=== PATIENT | male | born 1950 | race African-American/Black ===

== ENCOUNTER 2020-07-21 12:42 | Inpatient (IN) | payer MEDICARE, MEDICAID ==
[~2020-07-21 12:42] MED LIST: PROPOFOL 200 MG/20 ML VIAL ONE
[2020-07-21] MEDS ORDERED: Ondansetron PF 4 MG/2 ML Vial IVP PRN (15:33)
[2020-07-21 16:36] LABS: INR-International Normal Ratio 1.5; PTT 27.4 sec (22.9-36.1); Prothrombin Time 18.5 sec (12.0-14.7)
[2020-07-21 17:03] LABS: Hemoglobin 7.6 g/dL (14.0-18.0); Mean Corpuscular HGB CONC 31.4 g/dL (32.0-36.0); Mean Corpuscular Hemoglobin 28.7 pg (27.0-31.0); Mean Corpuscular Volume 91.4 fL (78.0-98.0); RBC Distribution Width 17.4 % (11.5-14.5); Red Blood Cell (RBC) Count 2.65 mill/uL (4.70-6.10); White Blood Cell (WBC) Count 12.9 thou/uL (4.8-10.8)
[2020-07-21 17:07] LABS: Anion Gap 13 mmol/L (10-20); BUN (Urea Nitrogen) 19 mg/dL (8.4-25.7); Calc. Creatinine Clearance 66 mL/min (70-130); Calcium 8.2 mg/dL (7.8-10.44); Carbon Dioxide 14 mmol/L (23-31); Chloride 111 mmol/L (98-107); Glucose 122 mg/dL (83-110); Sodium 134 mmol/L (136-145)
[2020-07-21 17:24] LABS: #Basophils 0.1 thou/uL (0.0-0.2); #Eosinphils 0.2 thou/uL (0.0-0.7); #Lymphocytes 3.2 thou/uL (1.20-3.40); #Monocytes 1.5 thou/uL (0.11-0.59); #Neutrophils 7.6 thou/uL (1.40-6.50); %Basophils 0.6 % (0.0-1.0); %Eosinophils 2.1 % (0.0-10.0); %Lymphocytes 26.6 % (21.0-51.0); %Neutrophils 59.7 % (42.0-75.0); MDiff Complete? YES; Mean Platelet Volume 10.6 fL (7.4-10.4); Platelet Count 90 thou/uL (130-400); Platelet Morphology Comment Appears Decreased; Polychromasia SLIGHT = 2-3 cells (100X) (0-2/hpf); Target Cells SLIGHT = 2-5 cells (100X) (0-1/hpf)
[2020-07-21] MEDS ORDERED: Albumin 25% 25 GM/100 ML BOT IVPB SCH (18:11)
[2020-07-21 18:49] LABS: ALT (SGPT) 23 U/L (8-55); AST (SGOT) 54 U/L (5-34); Albumin 2.1 g/dL (3.4-4.8); Alkaline Phosphatase 75 U/L (40-110); Bilirubin, Direct 1.4 mg/dL (0.1-0.3); Protein, Total 7.6 g/dL (5.8-8.1)
[2020-07-21] MEDS: Sodium Bicarbonate 75 MEQ in Sodium Chloride 0.45% 1,000 ML IV SCH (18:52)
--- NOTE | 2020-07-21 20:17 | CON ---
DATE OF CONSULTATION: HISTORY OF PRESENT ILLNESS: The patient is a 70-year-old gentleman who was seen and admitted to [facility] in [place] for a GI bleed. He is awaiting transfer to [facility]; however, they would not accept him because of capacity and he was transferred here. He is confused and unable to add to History of Present Illness. He denies any nausea or vomiting, abdominal pain, or weight loss, but he also denies any bleeding. He underwent an upper endoscopy at [facility] in [place]. It reportedly showed an antral nodule that was biopsied and cauterized. It was unclear whether that was a source of the bleeding. Today's labs from [facility] showed a glucose of 106, chloride 113, CO2 of 13, calcium 8.2, total bilirubin 1.9, SGOT is 69, albumin of 2.0. CBC showed a white blood cell count of 13.6, hemoglobin 7.0, hematocrit of 20.5, platelet count of 83. During the hospital course summary, the patient presented to the emergency department with presyncopal event at a local detention facility, found to have hypotension. He was given IV fluid replacement with improvement in his renal function. He began to have rectal balloon bleeding with two bloody bowel movements and drop in his hematocrit to 20. His reported stay in [place] required 4 units packed RBCs. Endoscopy was 07/02/2020. PAST MEDICAL HISTORY: According to the medical records sent with him shows congestive heart failure, CHF, hepatitis C, and hypertension. PAST SURGICAL HISTORY: Includes cardiac valve replacement, coronary angioplasty with stent placement. MEDICATIONS: Include; 1. Atorvastatin 40 mg p.o. daily. 2. Folic acid 1 mg p.o. daily. 3. Lasix 40 mg p.o. daily. 4. Hydrocodone/acetaminophen 1 q.6 hours p.r.n. 5. DuoNeb nebulizer q.6 hours p.r.n. 6. Lactulose 30 mL 3 times daily. 7. Losartan 50 mg p.o. daily. 8. Protonix 1 p.o. b.i.d. 9. Prazosin 1 tablet by mouth q.p.m. 10. Lyrica 1 p.o. b.i.d. 11. Propranolol 20 mg 1 p.o. b.i.d. 12. Seroquel 150 mg 1 p.o. daily. 13. Spironolactone 25 mg 1 p.o. daily. 14. Thiamine 1 tablet p.o. daily. SOCIAL HISTORY: He is single, smoker. Alcohol, 3 drinks per week. PHYSICAL EXAMINATION: VITAL SIGNS: Temperature 98.3, pulse 103, respiratory rate 16, blood pressure 114/72. HEENT: Unremarkable. NECK: Supple. CHEST: Clear. CARDIOVASCULAR: Regular rate and rhythm. ABDOMEN: Soft, nontender without organomegaly or masses. No appreciable fluid wave is present. RECTAL: Deferred. EXTREMITIES: Normal. NEUROLOGIC: Nonfocal. LABORATORY DATA: Shows white blood cell count is 12.9, hemoglobin 7.6, platelet count of 90,000. PT is 18.5 with an INR of 1.5. Chemistry shows sodium 134, chloride 111, CO2 of 14, creatinine 1.51, glucose 122. ASSESSMENT: 1. Gastrointestinal bleed-concern for cirrhotic to have an upper GI source of his bleeding. He had a GI bleed with 4 units of transfusion in [facility] approximately 2 weeks ago. There was an antral nodule that was treated with cautery. 2. Confusion-probably hepatic encephalopathy. 3. Anemia. 4. Cirrhosis by history-etiology is alcohol by medical record. 5. History of hepatitis C. 6. Renal insufficiency. RECOMMENDATIONS: 1. EGD urgently. 2. PPI. 3. Serial H and H. 4. Transfusion support if needed. 5. Lactulose once EGD is completed. 6. Serum ammonia. 7. IV fluids. 8. Midodrine, Sandostatin, and albumin until patient's renal function stabilizes. Job ID: [id number]
--- NOTE | 2020-07-21 20:31 | HP ---
CHIEF COMPLAINT: Hematochezia. HISTORY OF PRESENT ILLNESS: The patient is a 70-year-old male, who actually was transferred from a hospital in [place] for further evaluation for his hematochezia. It seems that the patient initially presented to the ED from the prison facility for a presyncopal event. He was found to be hypotensive and there was some evidence of acute kidney injury. There was reported to have some diarrhea; however, it appeared to be nonbloody at that time. The patient at this time was given some IV fluids and his creatinine improved; however, he was noted to have 2 bloody bowel movements and a drop in his hemoglobin and his hematocrit. At this time, since there was no GI specialist that was noted at the facility, the patient was transferred here for further evaluation. The patient initially recently was at [facility] in [facility] and had an EGD done, which indicated a small ulcerated nodular area in the antrum, which was treated with bipolar cautery. It was unclear if this was the site for bleeding. The patient also is a known cirrhotic. PAST MEDICAL HISTORY: Per the record includes heart failure, unclear if it is systolic and diastolic; hepatitis C; hypertension. PAST SURGICAL HISTORY: He has had coronary angioplasty with stent placement. He also has had a cardiac valve replacement. Again, I do not have very limited information since he normally follows up at [facility]. ALLERGIES: HE HAS ALLERGIES TO HYDROCHLOROTHIAZIDE. MEDICATIONS: He is on, 1. Tylenol as needed. 2. Atorvastatin 40 mg daily. 3. Folic acid 1 mg daily. 4. Lasix 40 mg daily. 5. Cozaar 50 mg daily. 6. Protonix 40 mg daily. 7. Prazosin 2 mg daily. 8. Pregabalin 75 mg daily. 9. Propranolol 20 mg daily. 10. Quetiapine 50 mg daily. 11. Spironolactone 25 mg daily. 12. Thiamine 100 mg daily. SOCIAL HISTORY: The patient currently smokes every day, one pack a day. Alcohol; from the notes, it looks like he is a current drinker, 4 shots of liquor per week, probably 3 drinks a day. No recreational drug use. FAMILY HISTORY: No history of heart disease or stroke. REVIEW OF SYSTEMS: All negative except the ones mentioned above in the HPI. PHYSICAL EXAMINATION: VITAL SIGNS: As of the following; temperature of 98.3, pulse 103, respirations 16, oxygen saturation 97% on room air, blood pressure 114/72. GENERAL: He is awake and oriented x1. CARDIOVASCULAR: S1 and S2 present. No murmurs, rubs, or gallops. LUNGS: Clear to auscultation. No rhonchi or wheezes noted. ABDOMEN: Mildly obese. Bowel sounds are present x2. Nontender upon palpation. EXTREMITIES: No edema. Pedal pulses are present x2. NEUROVASCULAR: No significant deficits noted. SKIN: No cuts, lesions, or bruises noted. LABORATORY DATA: Sodium of 134, potassium 4.0, BUN of 19, creatinine of 1.51. Coagulation, his INR is 1.5. WBCs of 12.9, hemoglobin of 7.6, hematocrit of 24.2, and his platelets are 90. ASSESSMENT AND PLAN: The patient is a very pleasant 70-year-old male who presents to the hospital with complaints of presyncope. He was found to have 2 bloody movements. 1. Acute gastrointestinal bleed. The patient had a bowel movement here, which was nonbloody in nature; however, he had 2 bloody bowel movements and dropped his H and H. He recently had an esophagogastroduodenoscopy, which indicated a small ulcerated nodule and underwent a bipolar cautery. This was done on July 02. We will start the patient on Protonix. We will consult Gastroenterology. 2. Acute blood loss anemia. We will continue to monitor H and H, and we will continue to see for any signs of bleeding. 3. Acute kidney injury. We will continue some mild hydration. We will add some bicarb. 4. Non-anion gap metabolic acidosis, most likely secondary to underlying elevated creatinine possibly versus starvation, unclear. We will start the patient on some bicarb. The patient's bicarb was 17. It has gotten a little worse. 5. Mild leukocytosis. It could be possibly reactive. We will continue to monitor. 6. Mild tachycardia. Again, we will start hydration and we will continue to monitor. 7. Deep venous thrombosis prophylaxis. We will put the patient on sequential compression devices. Job ID: [id number]
[2020-07-21] MEDS ORDERED: Ketamine 50 MG/ML (10ML VIAL) ONE (21:13)
[2020-07-21] MEDS: Pantoprazole 40 MG VIAL IVP SCH (22:07)
--- NOTE | 2020-07-21 22:18 | OP ---
DATE OF PROCEDURE: 07/21/2020 DESCRIPTION OF PROCEDURE: After informed consent was obtained, the patient was placed in the left lateral decubitus position, anesthesia administered per the Anesthesia Department. Forward-viewing endoscope was inserted into the esophagus under direct visualization with ease and passed to the second portion of the duodenum with ease. Second portion of duodenum and duodenal bulb were normal. The pylorus, antrum, body, fundus, and cardia were normal. No blood was seen in the upper GI tract. There was a large amount of retained gastric contents, so full visualization of the stomach and antrum could not be seen. No varices were noted. There was portal hypertensive gastropathy. ASSESSMENT: 1. Portal hypertensive gastropathy. 2. Large amount of retained gastric contents. 3. Otherwise normal partially visualized EGD. RECOMMENDATIONS: 1. Begin full liquids. 2. Lactulose. 3. Repeat EGD if re-bleeds. Job ID: [id number]
[2020-07-22] MEDS: Acetaminophen 325 MG TAB PO PRN ×2 (04:03→19:50)
[2020-07-22 07:46] LABS: Hemoglobin 7.4 g/dL (14.0-18.0); Mean Corpuscular HGB CONC 32.1 g/dL (32.0-36.0); Mean Corpuscular Hemoglobin 29.2 pg (27.0-31.0); Mean Corpuscular Volume 90.9 fL (78.0-98.0); Mean Platelet Volume 10.3 fL (7.4-10.4); Platelet Count 74 thou/uL (130-400); RBC Distribution Width 17.5 % (11.5-14.5); Red Blood Cell (RBC) Count 2.54 mill/uL (4.70-6.10)
[2020-07-22 07:51] LABS: Anion Gap 12 mmol/L (10-20); BUN (Urea Nitrogen) 15 mg/dL (8.4-25.7); Calc. Creatinine Clearance 72 mL/min (70-130); Calcium 8.1 mg/dL (7.8-10.44); Carbon Dioxide 16 mmol/L (23-31); Chloride 110 mmol/L (98-107); Glucose 89 mg/dL (83-110); Potassium 3.9 mmol/L (3.5-5.1); Sodium 134 mmol/L (136-145)
[2020-07-22] MEDS ORDERED: FLU VACC QS2020-21(65YR UP)/PF 240 MCG/0.7 ML SYRINGE IM ONE (09:00)
[2020-07-22] MEDS ORDERED: Folic Acid 1 MG TAB PO SCH (09:00)
--- NOTE | 2020-07-22 09:01 | PRG ---
DATE OF SERVICE: 07/22/2020 SUBJECTIVE: Mr. Tello is feeling pretty awake and mentally clear this morning. He is not having any abdominal pain or nausea. He has tolerated a liquid diet. There has been no report of overt bleeding overnight. He has remained hemodynamically stable. He is feeling hungry. OBJECTIVE: VITAL SIGNS: Temperature 98.1, pulse 78, blood pressure 116/68, and 96% oxygen saturation on room air. GENERAL: In no acute distress. HEART: Regular rate and rhythm. LUNGS: Clear to auscultation bilaterally. ABDOMEN: Mild distention. Not tense. Bowel sounds present. Nontender to palpation. EXTREMITIES: No peripheral edema. LABORATORY STUDIES: Hemoglobin low but stable at 7.4, platelets 74. INR 1.5. Sodium 134, potassium 3.9, BUN only 15, creatinine 1.37, total bilirubin 2.0, alkaline phosphatase 75, AST 54, and ALT 23. Ammonia was 74. Albumin 2.1. ASSESSMENT AND PLAN: 1. Anemia. 2. Suspected gastrointestinal bleed, with EGD showing no active bleeding in the stomach, though retained food on examination yesterday. The patient is clinically stable. I am seeing no evidence of overt bleeding since his essentially negative procedure yesterday. Note, the patient had an antral nodule that was biopsied recently at [facility], with pathology pending, but there was no blood seen in the examined portions of the stomach yesterday. No plan for repeat endoscopy. I think the patient's diet can be advanced to a low-sodium diet. Continue other outpatient medications. GI will sign off, but please call back anytime with questions or concerns. Job ID: [id number]
[2020-07-22 09:26] LABS: Band 3 % (5-11); Eosinophils 1 % (0-10); Hypochromia SLIGHT = 6-15 cells (100X) (0-5/hpf); Lymphocytes 37 % (21-51); MDiff Complete? YES; Monocytes 5 % (0-10); Neutrophil 52 % (42-75); Platelet Morphology Comment Appears Decreased; Polychromasia MODERATE = 3-4 cells (100X) (0-2/hpf); Reactive Lymphocytes 1 % (0-10); Target Cells SLIGHT = 2-5 cells (100X) (0-1/hpf); White Blood Cell (WBC) Count 11.2 thou/uL (4.8-10.8)
[2020-07-22] MEDS: Sodium Bicarbonate 75 MEQ in Sodium Chloride 0.45% 1,000 ML IV SCH ×2 (09:51→17:31)
[2020-07-22] MEDS: Pantoprazole 40 MG VIAL IVP SCH ×2 (09:52→19:49)
--- NOTE | 2020-07-22 14:00 | PDOC.HOSPP ---
- Subjective Encounter Date: 07/22/20 Encounter Time: 13:57 Subjective: confused, oriented to person only - Objective Vital Signs & Weight: Vital Signs (12 hours) Temp Pulse Resp BP Pulse Ox 07/22/20 12:05 98.3 F 85 14 117/71 96 07/22/20 08:00 98.1 F 78 20 116/68 96 07/22/20 04:34 98.7 F 91 16 100/58 L 100 Weight Weight 227 lb 11.8 oz I&O: 07/21/20 07/22/20 07/23/20 06:59 06:59 06:59 Intake Total 1240 Output Total 500 Balance 740 Result Diagrams: 07/22/20 07:19 07/22/20 07:19 Hospitalist ROS - Medication Medications: Active Medications Generic Name Dose Route Start Last Admin Trade Name Freq PRN Reason Stop Dose Admin Acetaminophen 650 mg 07/22/20 03:39 07/22/20 04:03 Acetaminophen 325 Mg Tab PO 650 mg Q6H PRN Administration Mild Pain (1-3) Folic Acid 1 mg 07/22/20 09:00 07/22/20 09:52 Folic Acid 1 Mg Tab PO 1 mg DAILY PALAK Administration Sodium Bicarbonate 75 meq/ 1,075 mls @ 100 mls/hr 07/21/20 18:15 07/22/20 09:51 Sodium Chloride IV 1,075 mls .[id number] PALAK Administration Thiamine HCl 100 mg/ Sodium 51 mls @ 100 mls/hr 07/21/20 18:15 07/21/20 18:53 Chloride IVPB 51 mls Q24HR PALAK Administration Pantoprazole Sodium 40 mg 07/21/20 21:00 07/22/20 09:52 Pantoprazole 40 Mg Vial IVP 40 mg BID PALAK Administration Quetiapine Fumarate 50 mg 07/21/20 21:00 07/21/20 22:07 Quetiapine Fumarate 25 Mg Tab PO 50 mg HS PALAK Administration Hospitalist Exam Vitals: Vital Signs (12 hours) Temp Pulse Resp BP Pulse Ox 07/22/20 12:05 98.3 F 85 14 117/71 96 07/22/20 08:00 98.1 F 78 20 116/68 96 07/22/20 04:34 98.7 F 91 16 100/58 L 100 Weight Weight 227 lb 11.8 oz Neck: no JVD Heart: no murmur, irregular Respiratory: CTAB Gastrointestinal: soft, non-tender, normal bowel sounds Extremities: 1+ LE edema Hosp A/P (1) GI bleeding Code(s): K92.2 - GASTROINTESTINAL HEMORRHAGE, UNSPECIFIED Status: Acute Qualifiers: GI bleed type/associated pathology: unspecified gastrointestinal hemorrhage type Qualified Code(s): K92.2 - Gastrointestinal hemorrhage, unspecified (2) Anemia due to blood loss Code(s): D50.0 - IRON DEFICIENCY ANEMIA SECONDARY TO BLOOD LOSS (CHRONIC) Status: Acute (3) Encephalopathy acute Code(s): G93.40 - ENCEPHALOPATHY, UNSPECIFIED Status: Acute (4) Cirrhosis of liver Code(s): K74.60 - UNSPECIFIED CIRRHOSIS OF LIVER Status: Acute Qualifiers: Hepatic cirrhosis type: alcoholic cirrhosis (5) HTN (hypertension) Code(s): I10 - ESSENTIAL (PRIMARY) HYPERTENSION Status: Chronic Qualifiers: Hypertension type: essential hypertension Qualified Code(s): I10 - Essential (primary) hypertension (6) CAD (coronary artery disease) Code(s): I25.10 - ATHSCL HEART DISEASE OF [place] CORONARY ARTERY W/O ANG PCTRS Status: Chronic Qualifiers: Coronary Disease-Associated Artery/Lesion type: [place] artery [place] vs. transplanted heart: [place] heart Associated angina: without angina Qualified Code(s): I25.10 - Atherosclerotic heart disease of [place] coronary artery without angina pectoris - Plan reinstitute lactulose, propanolol, vitamins etc rpt cbc, bmp, ammonia level in am
--- NOTE | 2020-07-22 17:15 | OP ---
DATE OF PROCEDURE: 07/22/2020 PREOPERATIVE DIAGNOSES: 1. Acute GI bleed. 2. History of liver cirrhosis. POSTOPERATIVE DIAGNOSES: 1. Acute GI bleed. 2. History of liver cirrhosis. PROCEDURE PERFORMED: Placement of triple-lumen left subclavian central venous catheter. INDICATIONS FOR PROCEDURE: This is a 70-year-old man, who was admitted with acute GI bleed. Multiple attempts to secure peripheral IV access has been unsuccessful. I was asked to place a central venous catheter tip to facilitate therapeutic interventions. DESCRIPTION OF PROCEDURE: Verbal informed consent was obtained from the patient's power of ip attorney. The patient was placed in supine position. Left chest wall was sterilely prepped and draped in usual fashion. Skin below the left clavicle was anesthetized with 1% lidocaine. Left subclavian vein was cannulated with an 18-gauge introducer needle, returning dark venous blood in a single pass. Guidewire was passed through the needle and advanced into the left subclavian vein without resistance. Needle was withdrawn over the guidewire. A stab incision was made adjacent to the guidewire using 11 scalpel. Dilator was passed over the guidewire, dilating the subcutaneous tissues. Dilator was removed and a triple-lumen central venous catheter was advanced over the guidewire and placed in the left subclavian vein without resistance down to 18 cm. The catheter was secured to anterior chest wall using 3-0 silk suture at two points. Sterile dressings were applied. Note that dark venous blood was aspirated from all three ports, which were individually flushed with saline. The patient tolerated the procedure without any apparent complication and remains hemodynamically stable following completion of procedure. Chest x-ray will be obtained to rule out pneumothorax. Job ID: [id number]
--- NOTE | 2020-07-22 18:03 | RAD ---
PORTABLE CHEST: History: Central line placement Comparison: None FINDINGS: Central line has been placed via the left subclavian. The tip overlies the upper SVC and appears adeq uately positioned. Lungs are clear of infiltrate. Vascular markings normal. Post op sternotomy change. Heart and mediast inum unremarkable. IMPRESSION: Central line appears adequately positioned. POS: AGW
[2020-07-22] MEDS: Atorvastatin Calcium 40 MG TAB PO SCH (19:49)
[2020-07-22] MEDS: Propranolol HCl 20 MG TAB PO SCH (19:59)
[2020-07-23] MEDS: Sodium Bicarbonate 75 MEQ in Sodium Chloride 0.45% 1,000 ML IV SCH ×3 (05:46→20:18)
[2020-07-23 05:56] LABS: #Eosinphils 0.1 thou/uL (0.0-0.7); #Monocytes 0.8 thou/uL (0.11-0.59); #Neutrophils 4.4 thou/uL (1.40-6.50); %Basophils 0.2 % (0.0-1.0); %Eosinophils 1.7 % (0.0-10.0); %Lymphocytes 35.8 % (21.0-51.0); %Monocytes 9.5 % (0.0-10.0); %Neutrophils 52.9 % (42.0-75.0); Mean Corpuscular HGB CONC 31.7 g/dL (32.0-36.0); Mean Corpuscular Volume 91.4 fL (78.0-98.0); Mean Platelet Volume 10.3 fL (7.4-10.4); Platelet Count 78 thou/uL (130-400); RBC Distribution Width 17.5 % (11.5-14.5); Red Blood Cell (RBC) Count 2.42 mill/uL (4.70-6.10); White Blood Cell (WBC) Count 8.3 thou/uL (4.8-10.8)
[2020-07-23 06:13] LABS: Anion Gap 8 mmol/L (10-20); BUN (Urea Nitrogen) 8 mg/dL (8.4-25.7); Calc. Creatinine Clearance 94 mL/min (70-130); Calcium 7.8 mg/dL (7.8-10.44); Carbon Dioxide 21 mmol/L (23-31); Chloride 109 mmol/L (98-107); Glucose 101 mg/dL (83-110); Potassium 3.2 mmol/L (3.5-5.1); Sodium 135 mmol/L (136-145)
[2020-07-23] MEDS: Propranolol HCl 20 MG TAB PO SCH ×3 (09:38→20:19)
[2020-07-23] MEDS: Losartan 25 MG TAB PO SCH ×2 (09:39→09:55)
[2020-07-23] MEDS: Folic Acid 1 MG TAB PO SCH ×2 (09:39→09:55)
[2020-07-23] MEDS: Pantoprazole 40 MG VIAL IVP SCH ×2 (09:39→20:19)
[2020-07-23] MEDS: Thiamine 100 MG TAB PO SCH ×2 (09:39→09:54)
[2020-07-23] MEDS: Spironolactone 25 MG TAB PO SCH ×2 (09:39→09:55)
--- NOTE | 2020-07-23 11:42 | PDOC.HOSPP ---
- Subjective Encounter Date: 07/23/20 Encounter Time: 11:40 Subjective: no complaints - Objective Vital Signs & Weight: Vital Signs (12 hours) Temp Pulse Resp BP Pulse Ox 07/23/20 08:01 98.7 F 66 16 109/67 95 07/23/20 02:14 98.3 F 103 H 18 123/63 96 Weight Admit Weight 227 lb 11.8 oz Weight 227 lb 11.8 oz I&O: 07/22/20 07/23/20 07/24/20 06:59 06:59 06:59 Intake Total 1240 3060 Output Total 500 1900 Balance 740 1160 Result Diagrams: 07/23/20 05:34 07/23/20 05:34 Hospitalist ROS - Medication Medications: Active Medications Generic Name Dose Route Start Last Admin Trade Name Freq PRN Reason Stop Dose Admin Acetaminophen 650 mg 07/22/20 03:39 07/22/20 19:50 Acetaminophen 325 Mg Tab PO 650 mg Q6H PRN Administration Mild Pain (1-3) Atorvastatin Calcium 40 mg 07/22/20 21:00 07/22/20 19:49 Atorvastatin Calcium 40 Mg Tab PO 40 mg HS PALAK Administration Folic Acid 1 mg 07/23/20 09:00 07/23/20 09:55 Folic Acid 1 Mg Tab PO Not Given DAILY PALAK Sodium Bicarbonate 75 meq/ 1,075 mls @ 100 mls/hr 07/21/20 18:15 07/23/20 05:46 Sodium Chloride IV 1,075 mls .[id number] PALAK Administration Lactulose 20 gm 07/22/20 15:00 07/23/20 09:54 Lactulose 20 Gm/30 Ml Udcup PO Not Given TID PALAK Losartan Potassium 50 mg 07/23/20 09:00 07/23/20 09:55 Losartan 25 Mg Tab PO Not Given DAILY PALAK Pantoprazole Sodium 40 mg 07/21/20 21:00 07/23/20 09:39 Pantoprazole 40 Mg Vial IVP 40 mg BID PALAK Administration Propranolol HCl 20 mg 07/22/20 21:00 07/23/20 09:55 Propranolol Hcl 20 Mg Tab PO Not Given BID PALAK Quetiapine Fumarate 50 mg 07/22/20 21:00 07/22/20 19:49 Quetiapine Fumarate 25 Mg Tab PO 50 mg HS PALAK Administration Spironolactone 25 mg 07/23/20 09:00 07/23/20 09:55 Spironolactone 25 Mg Tab PO Not Given DAILY PALAK Thiamine HCl 100 mg 07/23/20 09:00 07/23/20 09:54 Thiamine 100 Mg Tab PO Not Given DAILY [facility] Hospitalist Exam Vitals: Vital Signs (12 hours) Temp Pulse Resp BP Pulse Ox 07/23/20 08:01 98.7 F 66 16 109/67 95 07/23/20 02:14 98.3 F 103 H 18 123/63 96 Weight Admit Weight 227 lb 11.8 oz Weight 227 lb 11.8 oz Neck: no JVD Heart: RRR, no murmur Respiratory: CTAB Gastrointestinal: soft, normal bowel sounds Extremities: no edema Hosp A/P (1) GI bleeding Code(s): K92.2 - GASTROINTESTINAL HEMORRHAGE, UNSPECIFIED Status: Acute Qualifiers: GI bleed type/associated pathology: unspecified gastrointestinal hemorrhage type Qualified Code(s): K92.2 - Gastrointestinal hemorrhage, unspecified (2) Anemia due to blood loss Code(s): D50.0 - IRON DEFICIENCY ANEMIA SECONDARY TO BLOOD LOSS (CHRONIC) Status: Acute (3) Encephalopathy acute Code(s): G93.40 - ENCEPHALOPATHY, UNSPECIFIED Status: Acute (4) Cirrhosis of liver Code(s): K74.60 - UNSPECIFIED CIRRHOSIS OF LIVER Status: Acute Qualifiers: Hepatic cirrhosis type: alcoholic cirrhosis (5) HTN (hypertension) Code(s): I10 - ESSENTIAL (PRIMARY) HYPERTENSION Status: Chronic Qualifiers: Hypertension type: essential hypertension Qualified Code(s): I10 - Essential (primary) hypertension (6) CAD (coronary artery disease) Code(s): I25.10 - ATHSCL HEART DISEASE OF [place] CORONARY ARTERY W/O ANG PCTRS Status: Chronic Qualifiers: Coronary Disease-Associated Artery/Lesion type: [place] artery [place] vs. transplanted heart: [place] heart Associated angina: without angina Qualified Code(s): I25.10 - Atherosclerotic heart disease of [place] coronary artery without angina pectoris - Plan ammonia normal- cont lactulose Hg 7.0- transfuse 1 unit PRBC Fe, TIBC- if low will give iv iron
[2020-07-23 12:32] LABS: Iron 26 ug/dL (65-175); Iron Binding Capacity, Total 288 mcg/dL (261-462)
[2020-07-23] MEDS: Acetaminophen 325 MG TAB PO PRN (16:04)
[2020-07-23] MEDS: Atorvastatin Calcium 40 MG TAB PO SCH (20:19)
[2020-07-24 04:24] LABS: #Basophils 0.1 thou/uL (0.0-0.2); #Eosinphils 0.2 thou/uL (0.0-0.7); #Lymphocytes 2.1 thou/uL (1.20-3.40); #Monocytes 0.6 thou/uL (0.11-0.59); #Neutrophils 3.1 thou/uL (1.40-6.50); %Basophils 0.9 % (0.0-1.0); %Eosinophils 2.5 % (0.0-10.0); %Lymphocytes 35.7 % (21.0-51.0); %Monocytes 9.8 % (0.0-10.0); %Neutrophils 51.1 % (42.0-75.0); Hemoglobin 8.3 g/dL (14.0-18.0); Mean Corpuscular HGB CONC 32.9 g/dL (32.0-36.0); Mean Corpuscular Hemoglobin 30.6 pg (27.0-31.0); Mean Platelet Volume 9.6 fL (7.4-10.4); Platelet Count 79 thou/uL (130-400); RBC Distribution Width 17.6 % (11.5-14.5)
[2020-07-24 04:41] LABS: Anion Gap 9 mmol/L (10-20); BUN (Urea Nitrogen) 7 mg/dL (8.4-25.7); Calc. Creatinine Clearance 104 mL/min (70-130); Calcium 7.9 mg/dL (7.8-10.44); Carbon Dioxide 22 mmol/L (23-31); Chloride 107 mmol/L (98-107); Glucose 81 mg/dL (83-110); Potassium 3.4 mmol/L (3.5-5.1); Sodium 135 mmol/L (136-145)
[2020-07-24] MEDS: Sodium Bicarbonate 75 MEQ in Sodium Chloride 0.45% 1,000 ML IV SCH ×2 (06:19→18:13)
[2020-07-24] MEDS: Pantoprazole 40 MG VIAL IVP SCH ×2 (08:49→20:56)
[2020-07-24] MEDS: Folic Acid 1 MG TAB PO SCH (10:16)
[2020-07-24] MEDS: Propranolol HCl 20 MG TAB PO SCH ×2 (10:17→20:56)
[2020-07-24] MEDS: Thiamine 100 MG TAB PO SCH (10:17)
[2020-07-24] MEDS: Losartan 25 MG TAB PO SCH (10:17)
[2020-07-24] MEDS: Spironolactone 25 MG TAB PO SCH (10:17)
[2020-07-24 16:39] VITALS: BMI 29.9
[2020-07-24] MEDS: Atorvastatin Calcium 40 MG TAB PO SCH (20:56)
[2020-07-25] MEDS: Folic Acid 1 MG TAB PO SCH (09:38)
[2020-07-25] MEDS: Losartan 25 MG TAB PO SCH (09:38)
[2020-07-25] MEDS: Thiamine 100 MG TAB PO SCH (09:38)
[2020-07-25] MEDS: Pantoprazole 40 MG VIAL IVP SCH (09:39)
[2020-07-25] MEDS: Propranolol HCl 20 MG TAB PO SCH (09:39)
[2020-07-25] MEDS: Sodium Bicarbonate 75 MEQ in Sodium Chloride 0.45% 1,000 ML IV SCH ×2 (09:39→18:55)
[2020-07-25] MEDS: Acetaminophen 325 MG TAB PO PRN (09:41)
[2020-07-25] MEDS: Spironolactone 25 MG TAB PO SCH (10:52)
--- NOTE | 2020-07-25 11:16 | PDOC.HOSPP ---
- Subjective Encounter Date: 07/24/20 Encounter Time: 11:14 Subjective: no change, stable confusion - Objective Vital Signs & Weight: Vital Signs (12 hours) Temp Pulse Resp BP Pulse Ox 07/25/20 07:51 98.6 F 97 14 132/81 93 L 07/25/20 03:59 99.4 F 97 18 131/73 94 L 07/24/20 23:34 98.7 F 101 H 18 149/84 H 96 Weight Admit Weight 227 lb 11.8 oz Weight 227 lb I&O: 07/24/20 07/25/20 07/26/20 06:59 06:59 06:59 Intake Total 2750 1440 Output Total 1840 590 Balance 910 850 Result Diagrams: 07/24/20 04:12 07/24/20 04:12 Hospitalist ROS - Medication Medications: Active Medications Generic Name Dose Route Start Last Admin Trade Name Freq PRN Reason Stop Dose Admin Acetaminophen 650 mg 07/22/20 03:39 07/25/20 09:41 Acetaminophen 325 Mg Tab PO 650 mg Q6H PRN Administration Mild Pain (1-3) Atorvastatin Calcium 40 mg 07/22/20 21:00 07/24/20 20:56 Atorvastatin Calcium 40 Mg Tab PO 40 mg HS PALAK Administration Folic Acid 1 mg 07/23/20 09:00 07/25/20 09:38 Folic Acid 1 Mg Tab PO 1 mg DAILY PALAK Administration Sodium Bicarbonate 75 meq/ 1,075 mls @ 100 mls/hr 07/21/20 18:15 07/25/20 09:39 Sodium Chloride IV 1,075 mls .[id number] PALAK Administration Lactulose 20 gm 07/22/20 15:00 07/25/20 09:39 Lactulose 20 Gm/30 Ml Udcup PO 20 gm TID PALAK Administration Losartan Potassium 50 mg 07/23/20 09:00 07/25/20 09:38 Losartan 25 Mg Tab PO 50 mg DAILY PALAK Administration Pantoprazole Sodium 40 mg 07/21/20 21:00 07/25/20 09:39 Pantoprazole 40 Mg Vial IVP 40 mg BID PALAK Administration Propranolol HCl 20 mg 07/22/20 21:00 07/25/20 09:39 Propranolol Hcl 20 Mg Tab PO 20 mg BID PALAK Administration Quetiapine Fumarate 50 mg 07/22/20 21:00 07/24/20 20:56 Quetiapine Fumarate 25 Mg Tab PO 50 mg HS PALAK Administration Spironolactone 25 mg 07/23/20 09:00 07/25/20 10:52 Spironolactone 25 Mg Tab PO 25 mg DAILY PALAK Administration Thiamine HCl 100 mg 07/23/20 09:00 07/25/20 09:38 Thiamine 100 Mg Tab PO 100 mg DAILY PALAK Administration Hospitalist Exam Vitals: Vital Signs (12 hours) Temp Pulse Resp BP Pulse Ox 07/25/20 07:51 98.6 F 97 14 132/81 93 L 07/25/20 03:59 99.4 F 97 18 131/73 94 L 07/24/20 23:34 98.7 F 101 H 18 149/84 H 96 Weight Admit Weight 227 lb 11.8 oz Weight 227 lb General Appearance: awake alert Neck: no JVD Heart: RRR Respiratory: CTAB Gastrointestinal: soft, normal bowel sounds Extremities: no edema Hosp A/P (1) GI bleeding Code(s): K92.2 - GASTROINTESTINAL HEMORRHAGE, UNSPECIFIED Status: Acute Qualifiers: GI bleed type/associated pathology: unspecified gastrointestinal hemorrhage type Qualified Code(s): K92.2 - Gastrointestinal hemorrhage, unspecified (2) Anemia due to blood loss Code(s): D50.0 - IRON DEFICIENCY ANEMIA SECONDARY TO BLOOD LOSS (CHRONIC) Status: Acute (3) Encephalopathy acute Code(s): G93.40 - ENCEPHALOPATHY, UNSPECIFIED Status: Acute (4) Cirrhosis of liver Code(s): K74.60 - UNSPECIFIED CIRRHOSIS OF LIVER Status: Acute Qualifiers: Hepatic cirrhosis type: alcoholic cirrhosis (5) HTN (hypertension) Code(s): I10 - ESSENTIAL (PRIMARY) HYPERTENSION Status: Chronic Qualifiers: Hypertension type: essential hypertension Qualified Code(s): I10 - Essential (primary) hypertension (6) CAD (coronary artery disease) Code(s): I25.10 - ATHSCL HEART DISEASE OF [place] CORONARY ARTERY W/O ANG PCTRS Status: Chronic Qualifiers: Coronary Disease-Associated Artery/Lesion type: [place] artery [place] vs. t ransplanted heart: [place] heart Associated angina: without angina Qualified Code(s): I25.10 - Atherosclerotic heart disease of [place] coronary artery without angina pectoris - Plan DC planned todaay cancelled due to receiving facility requiring current PT exam so ordered
[2020-07-25 11:29] VITALS: TEMP 98.7
--- NOTE | 2020-07-25 11:58 | DIS ---
DATE OF ADMISSION: 07/21/2020 DATE OF DISCHARGE: 07/25/2020 PRIMARY CARE PROVIDER: Dr. Castillo. DISPOSITION: He is being discharged back to [facility]. FINAL DIAGNOSES: Anemia secondary to blood loss, cirrhosis of the liver, hepatic encephalopathy, gastrointestinal bleeding, coronary artery disease, hypertension. DISCHARGE MEDICINES: 1. Thiamine 100 mg a day. 2. Spironolactone 25 mg a day. 3. Seroquel 50 mg p.o. at bedtime. 4. Inderal 20 mg p.o. b.i.d. 5. Prazosin 2 mg a day. 6. Protonix 40 mg twice a day. 7. Cozaar 50 mg a day. 8. Lactulose 20 g p.o. t.i.d. 9. Lasix 40 mg a day. 10. Folic acid 1 mg a day. 11. Atorvastatin 40 mg at bedtime. ALLERGIES: ALLERGIC TO HYDROCHLOROTHIAZIDE. CODE STATUS: Full. DIET: Heart-healthy, low-salt. PENDING AT TIME OF DISCHARGE: Nothing. HOSPITAL COURSE: The patient admitted to [facility] after transfer from [facility] for evaluation of hematochezia. Diagnoses on admission were acute gastrointestinal bleed, acute blood loss anemia, acute kidney injury. Pertinent laboratory on admission; hemoglobin 7.6, white count 12.9, platelet count 90,000. INR 1.5. Chemistries; sodium 134, potassium 4.0, BUN 19, creatinine elevated at 1.51. The patient was given IV fluids, monitored, and consult with Dr. Heriberto Moon, Gastroenterology was obtained. Dr. Moon did an EGD, found portal hypertensive gastropathy, recommended EGD if rebleeds. The patient's hemoglobin stayed 7 to 7.6. However, because of its borderline, he was given 1 unit of blood, which increased his hemoglobin to 8.3. With IV fluids, his creatinine dropped to normal. With the lactulose, he improved; however, he is oriented to person only. His initial ammonia was 74, and with lactulose, it dropped to 46. Because of the need for IV access, on 07/22/2020, Dr. Michael Ryan was consulted and put in a central line. Currently, the patient's vital signs are stable. He is oriented to person and year, calm. He is being discharged back to the [facility] under the care of Dr. Castillo. He will be need to be seen in 3 to 7 days. He will need followup CBC, basic metabolic profile for care. Job ID: [id number]
[2020-07-25 16:39] VITALS: BP 149/82
--- NOTE | 2020-07-26 06:11 | DIS ---
DATE OF ADMISSION: 07/21/2020 DATE OF DISCHARGE: 07/25/2020 PRIMARY CARE PROVIDER: Listed as out of town physician. DISPOSITION: The patient is being discharged to [facility] under the care of Dr. Castillo. FINAL DIAGNOSES: Gastrointestinal bleeding, anemia, alcoholic cirrhosis, hepatic encephalopathy, acute kidney injury, coronary artery disease, hypertension. DISCHARGE MEDICINES: 1. Thiamine 100 mg a day. 2. Aldactone 25 mg a day. 3. Seroquel 50 mg at bedtime. 4. Propranolol 20 mg b.i.d. 5. Prazosin 2 mg in the evening. 6. Protonix 40 mg twice a day. 7. Losartan 50 mg a day. 8. Lactulose 20 g p.o. t.i.d. 9. DuoNeb 3 mL q.i.d. p.r.n. 10. Lasix 40 mg a day. 11. Folic acid 1 mg a day. 12. Lipitor 40 mg at night. ALLERGIES: HYDROCHLOROTHIAZIDE. CODE STATUS: Full. PENDING AT TIME OF DISCHARGE: Nothing. DIET: Heart healthy. HOSPITAL COURSE: The patient admitted through [facility] to the [facility] with a history of hematochezia, transferred from [place]. He was noted to have two bloody bowel movements. Consultations during his hospital stay are Dr. Heriberto Moon, Gastroenterology, and Dr. Michael Ryan, General Surgery. Dr. Moon's consultation recommended urgent EGD, PPI, serial hemoglobin and hematocrit, transfusion p.r.n. The patient's initial laboratory; sodium 134, potassium 4.0, carbon dioxide 14, creatinine 1.51, BUN 19, ammonia level was 74. After two days of therapy, his ammonia level has dropped to 46, his creatinine to 1.05, his BUN to 8 and his mental status cleared. Initial white count was 12.9, followup on 07/24 was 6.0. Initial hemoglobin was 7.6, followup 7.4, followup 7.0. Because of desire to transfer the patient and for safety purposes, he was given a unit of blood. His hemoglobin is now 8.3. The patient does have a mildly low platelet count at 90, 74, 78 and 79. His INR is 1.5. Report of his EGD, portal hypertensive gastropathy, otherwise normally visualized, that was done on 07/21/2020. On 07/22/2020, because of the need for IV, Dr. Michael Ryan was consulted to put in a central line. The patient is currently stable, has had no more bloody bowel movements. Hemoglobin is adequate. Vital signs are stable. The patient had no further bleeding. Will be followed up by Dr. Castillo. Job ID: [id number] MTDD
--- NOTE | 2020-07-29 22:01 | PQF ---
CLINICAL DOCUMENTATION CLARIFICATION FORM: Dear : Jennifer Acevedo Date / Time: 07/30/2020 Please exercise your independent, professional judgment in responding to the clarification form. Clinical indicators are provided on the bottom of this form for your review Please check appropriate box(es): [ ] GI bleeding is due to portal hypertensive gastropathy [ ] GI bleeding is due to alcoholic cirrhosis [ ] GI bleeding is due to [ ] Other diagnosis [ u ] Unable to determine In addition, please specify: Present on Admission (POA): [ ] Yes [ ] No [ ] Unable to determine To be completed by CDI/Coding staff for physician review: Present Clinical Indicators - Signs / Symptoms / Labs Results and Location in Medical Record [ x ] Patient was transferred for further evaluation for his hematochezia. H and P [ x ] Acute gastrointestinal bleed. Patient had a bowel movement here, which was nonbloody in nature, however had 2 bloody bowel movements and dropped his H and H. Recently had an EGD, which indicated a small ulcerated and underwent a bipolar cautery H and P [ x ] Acute blood loss anemia. Continue to monitor H and H, will continue to see for any signs of bleeding H and P [ x ] Portal hypertensive gastropathy. Large amount of retained gastric contents. Otherwise normal partially visualized EGD EGD report 07/21 [ x ] Gastrointestinal bleed-concern for cirrhotic to have an upper GI source of his bleeding. He had a GI bleed with 4 units of transfusion. 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
== END 2020-07-25 19:00 | DRG 378 ==
LOC: SURG A 15:36
PROVIDERS: ADMIT Internal Medicine; ATTEND Internal Medicine
PROC: 0DJ08ZZ Inspection of Upper Intestinal Tract, Via Natural or Artificial Opening Endoscopic (ICD-10-PCS; principal; 2020-07-21)
PROC: 02HV33Z Insertion of Infusion Device into Superior Vena Cava, Percutaneous Approach (ICD-10-PCS; 2020-07-22)
PROC: 30233N1 Transfusion of Nonautologous Red Blood Cells into Peripheral Vein, Percutaneous Approach (ICD-10-PCS; 2020-07-23)
DX: K92.2 Gastrointestinal hemorrhage, unspecified (principal); D62 Acute posthemorrhagic anemia; K76.6 Portal hypertension; N17.9 Acute kidney failure, unspecified; E87.2 Acidosis; G93.40 Encephalopathy, unspecified; R00.0 Tachycardia, unspecified; K70.30 Alcoholic cirrhosis of liver without ascites; K31.89 Other diseases of stomach and duodenum; K72.90 Hepatic failure, unspecified without coma; D72.829 Elevated white blood cell count, unspecified; I50.9 Heart failure, unspecified; F17.210 Nicotine dependence, cigarettes, uncomplicated; I11.0 Hypertensive heart disease with heart failure; E86.0 Dehydration; Z95.5 Presence of coronary angioplasty implant and graft; Z95.2 Presence of prosthetic heart valve; Z88.8 Allergy status to other drugs, medicaments and biological substances; Z86.19 Personal history of other infectious and parasitic diseases
CPT/HCPCS: 36415; 36430; 71045; 80048; 80076; 82140; 83540; 83550; 85025; 85610; 85730; 86850; 86900; 86901; C9113; J2704; J3411; P9016; P9047

== ENCOUNTER 2020-08-10 13:04 | Inpatient (IN) | payer MEDICARE, OTHER ==
[~2020-08-10 13:04] MED LIST changes: +Iopamidol-370 76% 500 ML 1 ML ONE; -PROPOFOL 200 MG/20 ML VIAL ONE
[2020-08-10] MEDS ORDERED: Norepinephrine 4 MG/4 ML VIAL ONE (13:17)
[2020-08-10] MEDS ORDERED: Norepinephrine 8 MG/0.9% NS 250 ML ONE (13:19)
[2020-08-10] MEDS ORDERED: Vasopressin 20 UNIT, Admixture Fee 1 EACH in Sodium Chloride 0.9% 50 ML IV SCH (14:30)
[2020-08-10 14:50] LABS: #Lymphocytes 1.6 thou/uL (1.20-3.40); #Neutrophils 15.8 thou/uL (1.40-6.50); %Basophils 0.2 % (0.0-1.0); %Eosinophils 0.1 % (0.0-10.0); %Lymphocytes 8.6 % (21.0-51.0); %Monocytes 5.6 % (0.0-10.0); %Neutrophils 85.5 % (42.0-75.0); Hemoglobin 7.2 g/dL (14.0-18.0); Mean Corpuscular HGB CONC 32.3 g/dL (32.0-36.0); Mean Corpuscular Volume 89.9 fL (78.0-98.0); Mean Platelet Volume 10.1 fL (7.4-10.4); Platelet Count 82 thou/uL (130-400); RBC Distribution Width 16.5 % (11.5-14.5); Red Blood Cell (RBC) Count 2.47 mill/uL (4.70-6.10); White Blood Cell (WBC) Count 18.5 thou/uL (4.8-10.8)
[2020-08-10 15:02] LABS: ALT (SGPT) 15 U/L (8-55); AST (SGOT) 37 U/L (5-34); Albumin 1.9 g/dL (3.4-4.8); Alkaline Phosphatase 53 U/L (40-110); Anion Gap 19 mmol/L (10-20); BUN (Urea Nitrogen) 17 mg/dL (8.4-25.7); Bilirubin, Total 1.7 mg/dL (0.2-1.2); Calc. Creatinine Clearance 0 mL/min (70-130); Calcium 7.6 mg/dL (7.8-10.44); Carbon Dioxide 13 mmol/L (23-31); Chloride 106 mmol/L (98-107); Globulin 4.3 g/dL (2.4-3.5); Glucose 64 mg/dL (83-110); Potassium 3.5 mmol/L (3.5-5.1); Protein, Total 6.2 g/dL (5.8-8.1); Sodium 134 mmol/L (136-145)
[2020-08-10] MEDS ORDERED: Sodium Bicarbonate 50 MEQ in Dextrose 5 %-0.45 % NaCl 1,000 ML IV SCH (15:15)
[2020-08-10] MEDS ORDERED: Vancomycin 1 GM in Premix Bag 1 BAG IVPB SCH (15:15)
[2020-08-10] MEDS ORDERED: Calcium Carbonate 500 MG ChewTAB PO PRN (15:23)
[2020-08-10] MEDS: Sodium Bicarbonate 150 MEQ in Dextrose 5% in Water 1,000 ML IV SCH (15:50)
[2020-08-10] MEDS ORDERED: Hydrocortisone Sod Succ/PF 100 mg/2 ml Vial ONE (15:51)
[2020-08-10] MEDS ORDERED: Sodium Bicarb 50 MEQ/50 ML Abboject 8.4% SYRINGE ONE (15:51)
[2020-08-10] MEDS ORDERED: Ketorolac Tromethamine 30 MG/ML VIAL ONE (15:59)
[2020-08-10] MEDS ORDERED: VANCOMYCIN 2 GRAM/400 ML BAG 2 GM in Premix Bag 1 BAG IVPB SCH (16:00)
[2020-08-10 16:04] LABS: Magnesium 1.2 mg/dL (1.6-2.6); Phosphorus 3.5 mg/dL (2.3-4.7)
[2020-08-10 16:08] LABS: Troponin I 0.212 ng/mL (< 0.028)
[2020-08-10 16:44] LABS: SARS-CoV-2 NAA Rapid Test Not Detected (NotDetected)
[2020-08-10] MEDS ORDERED: Magnesium Sulfate 4 GM in Sodium Chloride 0.9% 250 ML 250 ML IVPB SCH (18:00)
[2020-08-10 18:28] LABS: Lactic Acid 7.7 mmol/L (0.5-2.2)
[2020-08-10 18:32] LABS: Troponin I 0.217 ng/mL (< 0.028)
[2020-08-10] MEDS: Nicotine 14 MG PATCH TD SCH (18:56)
[2020-08-10] MEDS ORDERED: Fentanyl 100 MCG/2 ML VIAL ONE (19:36)
[2020-08-10] MEDS: Fentanyl 100 MCG/2 ML VIAL SLOW IVP PRN (19:38)
[2020-08-10] MEDS: Thiamine HCl 200 MG/2 ML VIAL SLOW IVP SCH (19:42)
[2020-08-10] MEDS: Pregabalin 50 MG CAP PO SCH (21:11)
[2020-08-10] MEDS: Pantoprazole 40 MG VIAL IVP SCH (21:12)
[2020-08-10] MEDS: MEROPENEM 1 GM/50 ML 1 GM in Premix Bag 1 BAG IVPB SCH (21:12)
[2020-08-10] MEDS ORDERED: MEROPENEM 1 GM/50 ML 1 GM in Premix Bag 1 BAG IVPB SCH (22:00)
[2020-08-10] MEDS: Norepinephrine 8 MG/0.9% NS 250 ML IVPB PRN (22:12)
[2020-08-10] MEDS: Vancomycin HCl 25 MG/ML Oral PO SCH (22:12)
[2020-08-10] MEDS ORDERED: Electrolyte Replacement Protocol 1 EACH FS PRN (22:30)
[2020-08-10 22:49] LABS: Chloride 104 mmol/L (98-107); Potassium 3.8 mmol/L (3.5-5.1); Sodium 132 mmol/L (136-145)
[2020-08-10 22:50] LABS: Calcium 7.8 mg/dL (7.8-10.44); Glucose 75 mg/dL (83-110)
[2020-08-10 22:51] LABS: Anion Gap 19 mmol/L (10-20); Carbon Dioxide 13 mmol/L (23-31)
[2020-08-10 22:53] LABS: Calc. Creatinine Clearance 60 mL/min (70-130)
[2020-08-10 22:54] LABS: BUN (Urea Nitrogen) 19 mg/dL (8.4-25.7)
[2020-08-11] MEDS: Vancomycin HCl 25 MG/ML Oral PO SCH ×4 (01:12→16:54)
[2020-08-11 04:41] LABS: ALT (SGPT) 21 U/L (8-55); AST (SGOT) 47 U/L (5-34); Albumin 2.4 g/dL (3.4-4.8); Alkaline Phosphatase 58 U/L (40-110); Anion Gap 15 mmol/L (10-20); BUN (Urea Nitrogen) 20 mg/dL (8.4-25.7); Bilirubin, Total 1.9 mg/dL (0.2-1.2); Calc. Creatinine Clearance 63 mL/min (70-130); Calcium 7.7 mg/dL (7.8-10.44); Carbon Dioxide 19 mmol/L (23-31); Chloride 105 mmol/L (98-107); Globulin 5.3 g/dL (2.4-3.5); Glucose 120 mg/dL (83-110); Magnesium 2.1 mg/dL (1.6-2.6); Potassium 3.6 mmol/L (3.5-5.1); Protein, Total 7.7 g/dL (5.8-8.1); Sodium 135 mmol/L (136-145)
[2020-08-11 04:42] LABS: Lactic Acid 6.8 mmol/L (0.5-2.2)
[2020-08-11] MEDS: Sodium Bicarbonate 150 MEQ in Dextrose 5% in Water 1,000 ML IV SCH ×4 (05:14→22:51)
[2020-08-11] MEDS: Norepinephrine 8 MG/0.9% NS 250 ML IVPB PRN ×2 (05:15→16:52)
[2020-08-11 05:25] LABS: Band 30 % (5-11); Lymphocytes 5 % (21-51); MDiff Complete? YES; Mean Corpuscular HGB CONC 31.2 g/dL (32.0-36.0); Mean Corpuscular Hemoglobin 28.3 pg (27.0-31.0); Mean Corpuscular Volume 90.8 fL (78.0-98.0); Mean Platelet Volume 10.8 fL (7.4-10.4); Metamyelocyte 3 % (0-0); Monocytes 6 % (0-10); Myelocyte 1 % (0-0); Neutrophil 55 % (42-75); Platelet Count 94 thou/uL (130-400); Platelet Morphology Comment Appears Decreased; RBC Distribution Width 16.4 % (11.5-14.5); Red Blood Cell (RBC) Count 2.83 mill/uL (4.70-6.10); White Blood Cell (WBC) Count 36.8 thou/uL (4.8-10.8)
[2020-08-11] MEDS: Pregabalin 50 MG CAP PO SCH ×3 (07:45→19:49)
[2020-08-11] MEDS: Pantoprazole 40 MG VIAL IVP SCH ×2 (07:45→19:48)
[2020-08-11] MEDS: MEROPENEM 1 GM/50 ML 1 GM in Premix Bag 1 BAG IVPB SCH ×2 (08:48→19:51)
[2020-08-11] MEDS: Fentanyl 100 MCG/2 ML VIAL SLOW IVP PRN ×5 (08:49→22:02)
[2020-08-11] MEDS ORDERED: Phytonadione 10 MG in Sodium Chloride 0.9% 50 ML IVPB SCH (09:00)
[2020-08-11] MEDS ORDERED: Phytonadione 1 MG/0.5 ML Miniject SYRINGE IM SCH (09:00)
[2020-08-11] MEDS ORDERED: Cyanocobalamin 1000 MCG/ML VIAL IM SCH (09:00)
[2020-08-11 09:42] LABS: PTT 42.1 sec (22.9-36.1); Prothrombin Time 23.1 sec (12.0-14.7)
[2020-08-11 09:44] LABS: Acetaminophen Less than 6.0 mcg/mL (10.0-30.0); Alcohol Less than 10 mg/dL (Less than 10); CK (CPK) 238 U/L (30-200); Salicylate Less than 8.0 mg/dL (15.0-30.0)
[2020-08-11] MEDS: Thiamine HCl 200 MG/2 ML VIAL SLOW IVP SCH ×2 (10:08→16:53)
[2020-08-11 10:42] LABS: PTT 41.5 sec (22.9-36.1); Prothrombin Time 22.8 sec (12.0-14.7)
[2020-08-11 11:08] LABS: HIV (1/2) Antibody/Antigen Non-Reactive (NonReactive); HIV 1/2 INDEX 0.08 S/CO (<1.00)
[2020-08-11] MEDS ORDERED: Sodium Bicarbonate 2.5 MEQ/5 ML VIAL ONE (12:26)
[2020-08-11] MEDS ORDERED: Fentanyl 100 MCG/2 ML VIAL ONE (12:26)
[2020-08-11] MEDS: Vancomycin 1.5 GRAM/300 ML BAG 1.5 GM in Premix Bag 1 BAG IVPB SCH (14:08)
[2020-08-11] MEDS: Nicotine 14 MG PATCH TD SCH (14:32)
[2020-08-12] MEDS: Vancomycin HCl 25 MG/ML Oral PO SCH ×5 (00:53→23:12)
[2020-08-12] MEDS: Fentanyl 100 MCG/2 ML VIAL SLOW IVP PRN ×7 (02:20→23:24)
[2020-08-12 03:01] LABS: Anisocytosis SLIGHT = 6-15 cells (100X) (0-5/hpf); Band 17 % (5-11); Eosinophils 1 % (0-10); Hemoglobin 6.7 g/dL (14.0-18.0); Lymphocytes 12 % (21-51); MDiff Complete? YES; Mean Corpuscular HGB CONC 32.8 g/dL (32.0-36.0); Mean Corpuscular Hemoglobin 29.8 pg (27.0-31.0); Mean Corpuscular Volume 90.9 fL (78.0-98.0); Mean Platelet Volume 10.2 fL (7.4-10.4); Monocytes 2 % (0-10); Neutrophil 68 % (42-75); Platelet Count 67 thou/uL (130-400); Platelet Morphology Comment Appears Decreased; RBC Distribution Width 16.1 % (11.5-14.5); Red Blood Cell (RBC) Count 2.26 mill/uL (4.70-6.10); White Blood Cell (WBC) Count 29.6 thou/uL (4.8-10.8)
[2020-08-12 03:07] LABS: ALT (SGPT) 16 U/L (8-55); AST (SGOT) 38 U/L (5-34); Albumin 1.9 g/dL (3.4-4.8); Alkaline Phosphatase 47 U/L (40-110); Anion Gap 11 mmol/L (10-20); BUN (Urea Nitrogen) 20 mg/dL (8.4-25.7); Bilirubin, Total 1.7 mg/dL (0.2-1.2); Calc. Creatinine Clearance 103 mL/min (70-130); Calcium 7.3 mg/dL (7.8-10.44); Carbon Dioxide 30 mmol/L (23-31); Chloride 100 mmol/L (98-107); Globulin 4.5 g/dL (2.4-3.5); Glucose 126 mg/dL (83-110); Magnesium 2.1 mg/dL (1.6-2.6); Protein, Total 6.4 g/dL (5.8-8.1); Sodium 138 mmol/L (136-145)
[2020-08-12 03:23] LABS: Phosphorus 2.3 mg/dL (2.3-4.7)
[2020-08-12 03:24] LABS: Potassium 2.9 mmol/L (3.5-5.1)
[2020-08-12] MEDS ORDERED: Electrolyte Replacement Protocol FS PRN (03:45)
[2020-08-12] MEDS: Potassium Chloride 40 MEQ in Sodium Chloride 0.9% 250 ML 250 ML IVPB SCH ×2 (03:58→08:07)
[2020-08-12] MEDS: MEROPENEM 1 GM/50 ML 1 GM in Premix Bag 1 BAG IVPB SCH ×2 (08:08→19:33)
[2020-08-12] MEDS: Pregabalin 50 MG CAP PO SCH ×4 (08:23→20:19)
[2020-08-12] MEDS: Pantoprazole 40 MG VIAL IVP SCH ×2 (08:23→20:20)
[2020-08-12] MEDS: Thiamine HCl 200 MG/2 ML VIAL SLOW IVP SCH (08:51)
[2020-08-12 13:47] LABS: Vancomycin, Trough 11.6 ug/mL
[2020-08-12] MEDS ORDERED: VANCOMYCIN 1.75 GM/350 ML BAG 1.75 GM in Premix Bag 1 BAG IVPB SCH (15:00)
[2020-08-12] MEDS: Nicotine 14 MG PATCH TD SCH (15:38)
[2020-08-12] MEDS: Acetaminophen 325 MG TAB PO PRN (15:47)
[2020-08-13] MEDS: Fentanyl 100 MCG/2 ML VIAL SLOW IVP PRN (03:04)
[2020-08-13] MEDS: Vancomycin HCl 25 MG/ML Oral PO SCH ×2 (05:28→11:35)
[2020-08-13 05:34] LABS: #Basophils 0.1 thou/uL (0.0-0.2); #Eosinphils 0.1 thou/uL (0.0-0.7); #Lymphocytes 2.8 thou/uL (1.20-3.40); #Monocytes 0.8 thou/uL (0.11-0.59); #Neutrophils 12.4 thou/uL (1.40-6.50); %Basophils 0.4 % (0.0-1.0); %Eosinophils 0.8 % (0.0-10.0); %Lymphocytes 17.2 % (21.0-51.0); %Neutrophils 76.6 % (42.0-75.0); Mean Corpuscular HGB CONC 32.1 g/dL (32.0-36.0); Mean Corpuscular Hemoglobin 28.9 pg (27.0-31.0); Mean Corpuscular Volume 90.1 fL (78.0-98.0); Mean Platelet Volume 10.8 fL (7.4-10.4); Platelet Count 68 thou/uL (130-400); Red Blood Cell (RBC) Count 2.77 mill/uL (4.70-6.10); White Blood Cell (WBC) Count 16.2 thou/uL (4.8-10.8)
[2020-08-13 05:53] LABS: ALT (SGPT) 16 U/L (8-55); AST (SGOT) 32 U/L (5-34); Albumin 2.1 g/dL (3.4-4.8); Alkaline Phosphatase 54 U/L (40-110); Anion Gap 11 mmol/L (10-20); BUN (Urea Nitrogen) 14 mg/dL (8.4-25.7); Bilirubin, Total 1.8 mg/dL (0.2-1.2); Calc. Creatinine Clearance 135 mL/min (70-130); Calcium 7.7 mg/dL (7.8-10.44); Carbon Dioxide 27 mmol/L (23-31); Chloride 101 mmol/L (98-107); Globulin 4.6 g/dL (2.4-3.5); Glucose 108 mg/dL (83-110); Magnesium 2.1 mg/dL (1.6-2.6); Potassium 3.6 mmol/L (3.5-5.1); Protein, Total 6.7 g/dL (5.8-8.1); Sodium 135 mmol/L (136-145)
[2020-08-13 05:57] LABS: INR-International Normal Ratio 1.3; Prothrombin Time 16.9 sec (12.0-14.7)
[2020-08-13] MEDS: MEROPENEM 1 GM/50 ML 1 GM in Premix Bag 1 BAG IVPB SCH ×2 (07:43→20:40)
[2020-08-13] MEDS: Pregabalin 50 MG CAP PO SCH ×3 (07:57→21:06)
[2020-08-13] MEDS: Acetaminophen 325 MG TAB PO PRN ×2 (07:58→22:05)
[2020-08-13] MEDS: Thiamine HCl 200 MG/2 ML VIAL SLOW IVP SCH (08:00)
[2020-08-13 11:15] LABS: Amphetamine Not Detected (NotDetected); Barbiturates Screen Not Detected (NotDetected); Benzodiazepine Screen Not Detected (NotDetected); Cocaine Metabolite Screen Not Detected (NotDetected); Medtox Control Line Valid? VALID (VALID); Medtox Reader # READER 4; Methadone Not Detected (NotDetected); Methamphetamine Not Detected (NotDetected); Opiate Screen Not Detected (NotDetected); Oxycodone Screen Not Detected (NotDetected); Phencyclidine (PCP) Not Detected (NotDetected); THC/Cannabinoid Screen Not Detected (NotDetected); Tricyclic Screen Not Detected (NotDetected)
[2020-08-13 11:41] LABS: A/G Ratio 0.5 (0.7-1.7); Albumin 2.1 g/dL (2.9-4.4); Alpha 1 0.3 g/dL (0.0-0.4); Alpha 2 0.4 g/dL (0.4-1.0); Beta 0.8 g/dL (0.7-1.3); Gamma 2.8 g/dL (0.4-1.8); Globulin, Total 4.3 g/dL (2.2-3.9); M-Spike Not Observed g/dL (Not Observed)
[2020-08-13] MEDS: Nicotine 14 MG PATCH TD SCH (15:02)
[2020-08-13] MEDS: Vancomycin 1.5 GRAM/300 ML BAG 1.5 GM in Premix Bag 1 BAG IVPB SCH (15:21)
[2020-08-13] MEDS ORDERED: Metoprolol Tartrate 5 MG/5 ML VIAL IVP SCH (21:45)
[2020-08-13 22:41] LABS: Hemoglobin 8.6 g/dL (14.0-18.0)
[2020-08-13 22:48] LABS: Lactic Acid 2.3 mmol/L (0.5-2.2)
[2020-08-13 22:51] LABS: Anion Gap 8 mmol/L (10-20); BUN (Urea Nitrogen) 8 mg/dL (8.4-25.7); Calc. Creatinine Clearance 144 mL/min (70-130); Calcium 7.9 mg/dL (7.8-10.44); Carbon Dioxide 26 mmol/L (23-31); Chloride 105 mmol/L (98-107); Glucose 99 mg/dL (83-110); Magnesium 1.8 mg/dL (1.6-2.6); Potassium 3.1 mmol/L (3.5-5.1); Sodium 136 mmol/L (136-145)
[2020-08-14] MEDS: Pregabalin 50 MG CAP PO SCH ×3 (08:40→21:21)
[2020-08-14] MEDS: MEROPENEM 1 GM/50 ML 1 GM in Premix Bag 1 BAG IVPB SCH ×2 (08:41→21:21)
[2020-08-14] MEDS: Thiamine HCl 200 MG/2 ML VIAL SLOW IVP SCH (08:53)
[2020-08-14] MEDS ORDERED: Lorazepam 2 MG/ML VIAL SLOW IVP PRN (09:40)
[2020-08-14 15:23] LABS: Anion Gap 9 mmol/L (10-20); BUN (Urea Nitrogen) 6 mg/dL (8.4-25.7); Calc. Creatinine Clearance 144 mL/min (70-130); Calcium 8.3 mg/dL (7.8-10.44); Carbon Dioxide 25 mmol/L (23-31); Chloride 104 mmol/L (98-107); Glucose 157 mg/dL (83-110); Potassium 3.1 mmol/L (3.5-5.1); Sodium 135 mmol/L (136-145)
[2020-08-14 15:36] LABS: Anisocytosis SLIGHT = 6-15 cells (100X) (0-5/hpf); Band 11 % (5-11); Eosinophils 1 % (0-10); Hemoglobin 8.5 g/dL (14.0-18.0); Hypochromia SLIGHT = 6-15 cells (100X) (0-5/hpf); Large Platelets SLIGHT; Lymphocytes 15 % (21-51); MDiff Complete? YES; Mean Corpuscular HGB CONC 30.7 g/dL (32.0-36.0); Mean Corpuscular Hemoglobin 28.5 pg (27.0-31.0); Mean Corpuscular Volume 92.6 fL (78.0-98.0); Mean Platelet Volume 11.1 fL (7.4-10.4); Monocytes 4 % (0-10); Neutrophil 68 % (42-75); Platelet Count 74 thou/uL (130-400); Platelet Morphology Comment Appears Decreased; Polychromasia SLIGHT = 2-3 cells (100X) (0-2/hpf); RBC Distribution Width 16.2 % (11.5-14.5); Reactive Lymphocytes 1 % (0-10); Red Blood Cell (RBC) Count 2.97 mill/uL (4.70-6.10); Schistocytes SLIGHT = 2-5 cells (100X) (0-1/hpf); Target Cells SLIGHT = 2-5 cells (100X) (0-1/hpf); Tear Drops SLIGHT = 2-5 cells (100X) (0-1/hpf); White Blood Cell (WBC) Count 7.7 thou/uL (4.8-10.8)
[2020-08-14] MEDS: Nicotine 14 MG PATCH TD SCH (16:03)
[2020-08-14] MEDS ORDERED: Potassium Chloride 40 MEQ in Sodium Chloride 0.9% 250 ML 250 ML IVPB SCH (17:30)
[2020-08-14] MEDS: Rifaximin 550 MG TAB PO SCH (21:21)
[2020-08-15] MEDS: Pregabalin 50 MG CAP PO SCH ×4 (09:50→20:43)
[2020-08-15] MEDS: MEROPENEM 1 GM/50 ML 1 GM in Premix Bag 1 BAG IVPB SCH ×2 (09:52→20:46)
[2020-08-15] MEDS: Rifaximin 550 MG TAB PO SCH ×2 (09:56→20:43)
[2020-08-15] MEDS: Thiamine HCl 200 MG/2 ML VIAL SLOW IVP SCH (10:04)
[2020-08-15 11:51] LABS: Hemoglobin 8.5 g/dL (14.0-18.0); Mean Corpuscular HGB CONC 32.2 g/dL (32.0-36.0); Mean Corpuscular Hemoglobin 29.3 pg (27.0-31.0); Mean Corpuscular Volume 91.1 fL (78.0-98.0); Mean Platelet Volume 11.3 fL (7.4-10.4); Platelet Count 82 thou/uL (130-400); RBC Distribution Width 16.5 % (11.5-14.5); Red Blood Cell (RBC) Count 2.89 mill/uL (4.70-6.10); White Blood Cell (WBC) Count 7.7 thou/uL (4.8-10.8)
[2020-08-15 12:03] LABS: ALT (SGPT) 14 U/L (8-55); AST (SGOT) 29 U/L (5-34); Albumin 2.2 g/dL (3.4-4.8); Alkaline Phosphatase 61 U/L (40-110); Anion Gap 11 mmol/L (10-20); BUN (Urea Nitrogen) 6 mg/dL (8.4-25.7); Bilirubin, Total 2.7 mg/dL (0.2-1.2); Calc. Creatinine Clearance 140 mL/min (70-130); Carbon Dioxide 21 mmol/L (23-31); Chloride 107 mmol/L (98-107); Globulin 4.6 g/dL (2.4-3.5); Glucose 119 mg/dL (83-110); Potassium 3.3 mmol/L (3.5-5.1); Protein, Total 6.8 g/dL (5.8-8.1); Sodium 136 mmol/L (136-145)
[2020-08-15 12:34] LABS: Band 6 % (5-11); Eosinophils 3 % (0-10); Lymphocytes 26 % (21-51); MDiff Complete? YES; Monocytes 14 % (0-10); Neutrophil 49 % (42-75); Platelet Morphology Comment Appears Decreased; Polychromasia SLIGHT = 2-3 cells (100X) (0-2/hpf); Reactive Lymphocytes 1 % (0-10)
[2020-08-15] MEDS: Acetaminophen 325 MG TAB PO PRN (15:21)
[2020-08-15] MEDS ORDERED: Potassium Chloride 20 MEQ TAB PO SCH (16:00)
[2020-08-15] MEDS ORDERED: Potassium Bicarbonate/Cit Ac 20 MEQ TAB PO SCH (16:30)
[2020-08-15] MEDS: Nicotine 14 MG PATCH TD SCH (18:43)
[2020-08-15] MEDS ORDERED: Melatonin 3 MG TAB PO SCH (22:30)
[2020-08-16] MEDS ORDERED: HYDROcodone/Acetaminophen 5/325 mg Tablet PO SCH (03:45)
[2020-08-16 06:01] LABS: #Eosinphils 0.1 thou/uL (0.0-0.7); #Lymphocytes 2.8 thou/uL (1.20-3.40); #Monocytes 0.9 thou/uL (0.11-0.59); #Neutrophils 3.7 thou/uL (1.40-6.50); %Basophils 0.5 % (0.0-1.0); %Eosinophils 1.7 % (0.0-10.0); %Lymphocytes 36.4 % (21.0-51.0); %Monocytes 12.3 % (0.0-10.0); %Neutrophils 49.1 % (42.0-75.0); Mean Corpuscular HGB CONC 32.4 g/dL (32.0-36.0); Mean Corpuscular Hemoglobin 29.6 pg (27.0-31.0); Mean Corpuscular Volume 91.5 fL (78.0-98.0); Mean Platelet Volume 10.1 fL (7.4-10.4); Platelet Count 84 thou/uL (130-400); Red Blood Cell (RBC) Count 2.69 mill/uL (4.70-6.10); White Blood Cell (WBC) Count 7.6 thou/uL (4.8-10.8)
[2020-08-16 06:19] LABS: ALT (SGPT) 13 U/L (8-55); AST (SGOT) 30 U/L (5-34); Albumin 2.3 g/dL (3.4-4.8); Alkaline Phosphatase 73 U/L (40-110); Anion Gap 11 mmol/L (10-20); BUN (Urea Nitrogen) 5 mg/dL (8.4-25.7); Bilirubin, Total 2.3 mg/dL (0.2-1.2); Calc. Creatinine Clearance 132 mL/min (70-130); Carbon Dioxide 20 mmol/L (23-31); Chloride 106 mmol/L (98-107); Globulin 4.7 g/dL (2.4-3.5); Glucose 134 mg/dL (83-110); Magnesium 1.2 mg/dL (1.6-2.6); Potassium 3.3 mmol/L (3.5-5.1); Sodium 134 mmol/L (136-145)
[2020-08-16] MEDS ORDERED: Potassium Chloride 20 MEQ TAB PO SCH (07:45)
[2020-08-16] MEDS ORDERED: Magnesium Sulfate 4 GM in Sodium Chloride 0.9% 250 ML 250 ML IVPB SCH (07:45)
[2020-08-16] MEDS ORDERED: Mag-Al Plus 1200 MG/1200 MG/120 MG/30 ML UDCUP PO PRN (08:40)
[2020-08-16] MEDS ORDERED: Acetaminophen 325 MG TAB PO PRN (08:47)
[2020-08-16] MEDS: MEROPENEM 1 GM/50 ML 1 GM in Premix Bag 1 BAG IVPB SCH ×2 (09:17→20:47)
[2020-08-16] MEDS: Losartan 25 MG TAB PO SCH (09:17)
[2020-08-16] MEDS: Thiamine 100 MG TAB PO SCH (09:17)
[2020-08-16] MEDS: Furosemide 40 MG TAB PO SCH (09:18)
[2020-08-16] MEDS: Pregabalin 50 MG CAP PO SCH ×3 (09:18→20:51)
[2020-08-16] MEDS: Propranolol HCl 20 MG TAB PO SCH ×2 (09:18→20:51)
[2020-08-16] MEDS: Spironolactone 25 MG TAB PO SCH (09:18)
[2020-08-16] MEDS: Folic Acid 1 MG TAB PO SCH (09:18)
[2020-08-16] MEDS: HYDROcodone/Acetaminophen 10/325 mg Tablet PO PRN ×3 (09:19→17:30)
[2020-08-16] MEDS: Nicotine 14 MG PATCH TD SCH (15:27)
[2020-08-16] MEDS: Atorvastatin Calcium 40 MG TAB PO SCH (20:49)
[2020-08-16] MEDS: Prazosin HCl 1 MG CAP PO SCH (20:50)
[2020-08-17] MEDS: MEROPENEM 1 GM/50 ML 1 GM in Premix Bag 1 BAG IVPB SCH ×2 (08:15→20:44)
[2020-08-17] MEDS: Losartan 25 MG TAB PO SCH (08:15)
[2020-08-17] MEDS: Pregabalin 50 MG CAP PO SCH ×3 (08:15→20:47)
[2020-08-17] MEDS: Folic Acid 1 MG TAB PO SCH (08:15)
[2020-08-17] MEDS: Thiamine 100 MG TAB PO SCH (08:16)
[2020-08-17] MEDS: Furosemide 40 MG TAB PO SCH (08:16)
[2020-08-17] MEDS: Spironolactone 25 MG TAB PO SCH (08:16)
[2020-08-17] MEDS: Propranolol HCl 20 MG TAB PO SCH (08:16)
[2020-08-17 08:48] LABS: #Basophils 0.1 thou/uL (0.0-0.2); #Eosinphils 0.2 thou/uL (0.0-0.7); #Lymphocytes 3.5 thou/uL (1.20-3.40); #Monocytes 0.8 thou/uL (0.11-0.59); %Basophils 0.6 % (0.0-1.0); %Eosinophils 2.4 % (0.0-10.0); %Lymphocytes 36.5 % (21.0-51.0); %Monocytes 8.3 % (0.0-10.0); %Neutrophils 52.3 % (42.0-75.0); Hemoglobin 8.5 g/dL (14.0-18.0); Mean Corpuscular HGB CONC 32.7 g/dL (32.0-36.0); Mean Corpuscular Hemoglobin 30.7 pg (27.0-31.0); Mean Platelet Volume 9.4 fL (7.4-10.4); Platelet Count 94 thou/uL (130-400); RBC Distribution Width 17.4 % (11.5-14.5); Red Blood Cell (RBC) Count 2.77 mill/uL (4.70-6.10); White Blood Cell (WBC) Count 9.6 thou/uL (4.8-10.8)
[2020-08-17 09:05] LABS: ALT (SGPT) 14 U/L (8-55); AST (SGOT) 30 U/L (5-34); Albumin 2.4 g/dL (3.4-4.8); Alkaline Phosphatase 72 U/L (40-110); Anion Gap 13 mmol/L (10-20); BUN (Urea Nitrogen) 9 mg/dL (8.4-25.7); Bilirubin, Total 2.8 mg/dL (0.2-1.2); Calc. Creatinine Clearance 50 mL/min (70-130); Calcium 8.1 mg/dL (7.8-10.44); Carbon Dioxide 19 mmol/L (23-31); Chloride 106 mmol/L (98-107); Globulin 4.9 g/dL (2.4-3.5); Glucose 69 mg/dL (83-110); Magnesium 1.9 mg/dL (1.6-2.6); Potassium 4.2 mmol/L (3.5-5.1); Protein, Total 7.3 g/dL (5.8-8.1); Sodium 134 mmol/L (136-145)
[2020-08-17] MEDS: HYDROcodone/Acetaminophen 10/325 mg Tablet PO PRN (09:20)
[2020-08-17] MEDS: Nicotine 14 MG PATCH TD SCH (15:56)
[2020-08-17] MEDS: Atorvastatin Calcium 40 MG TAB PO SCH (20:45)
[2020-08-17] MEDS: Prazosin HCl 1 MG CAP PO SCH (20:46)
[2020-08-18 04:50] LABS: #Basophils 0.1 thou/uL (0.0-0.2); #Eosinphils 0.2 thou/uL (0.0-0.7); #Lymphocytes 3.3 thou/uL (1.20-3.40); #Monocytes 0.9 thou/uL (0.11-0.59); #Neutrophils 5.8 thou/uL (1.40-6.50); %Basophils 0.6 % (0.0-1.0); %Lymphocytes 31.8 % (21.0-51.0); %Neutrophils 56.6 % (42.0-75.0); Mean Corpuscular HGB CONC 32.4 g/dL (32.0-36.0); Mean Corpuscular Hemoglobin 30.1 pg (27.0-31.0); Mean Platelet Volume 9.6 fL (7.4-10.4); Platelet Count 97 thou/uL (130-400); RBC Distribution Width 17.6 % (11.5-14.5); Red Blood Cell (RBC) Count 2.67 mill/uL (4.70-6.10); White Blood Cell (WBC) Count 10.3 thou/uL (4.8-10.8)
[2020-08-18 05:01] LABS: Anion Gap 13 mmol/L (10-20); BUN (Urea Nitrogen) 13 mg/dL (8.4-25.7); Calc. Creatinine Clearance 40 mL/min (70-130); Calcium 8.1 mg/dL (7.8-10.44); Carbon Dioxide 19 mmol/L (23-31); Chloride 105 mmol/L (98-107); Glucose 71 mg/dL (83-110); Sodium 133 mmol/L (136-145)
[2020-08-18] MEDS: Folic Acid 1 MG TAB PO SCH (09:05)
[2020-08-18] MEDS: Propranolol HCl 20 MG TAB PO SCH ×2 (09:05→19:57)
[2020-08-18] MEDS: Thiamine 100 MG TAB PO SCH (09:05)
[2020-08-18] MEDS: Pregabalin 50 MG CAP PO SCH ×3 (09:05→19:57)
[2020-08-18] MEDS: Spironolactone 25 MG TAB PO SCH (09:05)
[2020-08-18] MEDS: Furosemide 40 MG TAB PO SCH (09:05)
[2020-08-18] MEDS: MEROPENEM 1 GM/50 ML 1 GM in Premix Bag 1 BAG IVPB SCH ×2 (09:06→19:58)
[2020-08-18] MEDS: Sodium Bicarbonate Tab 325 MG TAB PO SCH ×2 (14:42→19:57)
[2020-08-18] MEDS ORDERED: Albumin 25% 25 GM/100 ML BOT IVPB SCH (14:45)
[2020-08-18] MEDS: Nicotine 14 MG PATCH TD SCH (15:35)
[2020-08-18 15:43] LABS: Bacteria/HPF None Seen HPF (None Seen); Bilirubin Negative (Negative); Blood, Urine Negative (Negative); Clarity Clear (Clear); Glucose, Urine (Dipstick) Normal (Negative); Ketone, Urine Negative (Negative); Leukocyte Negative Leu/uL (Negative); Nitrite Negative (Negative); Protein, Urine (Dipstick) Negative (Neg-Trace); RBC/HPF 0-3 HPF (0-3); Specific Gravity, Urine 1.005 (1.002-1.036); Squamous Epithelial 0-3 HPF (0-3); Urobilinogen Normal mg/dL (Less than 2); WBC/HPF 0-3 HPF (0-3)
[2020-08-18 15:44] LABS: Urine Culture Reflex No No
[2020-08-18 16:03] LABS: Creatinine, Urine 41.59 mg/dL (63-166); Protein, Urine Random Quant Less than 10 mg/dL (1-14); Sodium, Urine 65 mmol/L (Not Available); Urea Nitrogen, Random Urine 73 mg/dl
[2020-08-18] MEDS: Atorvastatin Calcium 40 MG TAB PO SCH (19:57)
[2020-08-18] MEDS: HYDROcodone/Acetaminophen 10/325 mg Tablet PO PRN (19:57)
[2020-08-18] MEDS: Prazosin HCl 1 MG CAP PO SCH (19:59)
[2020-08-18] MEDS: Albumin 25% 25 GM/100 ML BOT IVPB SCH (21:49)
[2020-08-19 05:12] LABS: #Eosinphils 0.1 thou/uL (0.0-0.7); #Lymphocytes 2.7 thou/uL (1.20-3.40); #Monocytes 0.6 thou/uL (0.11-0.59); #Neutrophils 7.2 thou/uL (1.40-6.50); %Basophils 0.4 % (0.0-1.0); %Eosinophils 1.1 % (0.0-10.0); %Lymphocytes 25.4 % (21.0-51.0); %Monocytes 5.3 % (0.0-10.0); %Neutrophils 67.8 % (42.0-75.0); Hemoglobin 7.7 g/dL (14.0-18.0); Mean Corpuscular HGB CONC 32.2 g/dL (32.0-36.0); Mean Corpuscular Hemoglobin 30.1 pg (27.0-31.0); Mean Corpuscular Volume 93.6 fL (78.0-98.0); Mean Platelet Volume 10.6 fL (7.4-10.4); Platelet Count 86 thou/uL (130-400); RBC Distribution Width 17.7 % (11.5-14.5); Red Blood Cell (RBC) Count 2.55 mill/uL (4.70-6.10); White Blood Cell (WBC) Count 10.5 thou/uL (4.8-10.8)
[2020-08-19] MEDS: Albumin 25% 25 GM/100 ML BOT IVPB SCH ×3 (05:18→22:56)
[2020-08-19 05:26] LABS: Albumin 2.7 g/dL (3.4-4.8); Anion Gap 14 mmol/L (10-20); BUN (Urea Nitrogen) 14 mg/dL (8.4-25.7); BUN/Creatinine Ratio 5.86; Calc. Creatinine Clearance 43 mL/min (70-130); Calcium 8.3 mg/dL (7.8-10.44); Carbon Dioxide 19 mmol/L (23-31); Chloride 107 mmol/L (98-107); Glucose 81 mg/dL (83-110); Iron Binding Capacity, Total 316 mcg/dL (261-462); Magnesium 1.8 mg/dL (1.6-2.6); Phosphorus 5.6 mg/dL (2.3-4.7); Potassium 4.2 mmol/L (3.5-5.1); Sodium 136 mmol/L (136-145)
[2020-08-19 05:29] LABS: Iron Less than 8 ug/dL (65-175)
[2020-08-19] MEDS: MEROPENEM 1 GM/50 ML 1 GM in Premix Bag 1 BAG IVPB SCH ×2 (10:58→20:03)
[2020-08-19] MEDS: Folic Acid 1 MG TAB PO SCH (11:01)
[2020-08-19] MEDS: Iron, Sodium Ferric Gluconate 250 MG in Sodium Chloride 0.9% 100 ML IVPB SCH ×2 (11:02→21:28)
[2020-08-19] MEDS: Pregabalin 50 MG CAP PO SCH ×3 (11:04→20:05)
[2020-08-19] MEDS: Propranolol HCl 20 MG TAB PO SCH ×2 (11:05→20:04)
[2020-08-19] MEDS: Spironolactone 25 MG TAB PO SCH (11:06)
[2020-08-19] MEDS: HYDROcodone/Acetaminophen 10/325 mg Tablet PO PRN ×2 (11:06→16:42)
[2020-08-19] MEDS: Thiamine 100 MG TAB PO SCH (11:06)
[2020-08-19] MEDS: Sodium Bicarbonate Tab 325 MG TAB PO SCH ×3 (11:06→20:04)
[2020-08-19] MEDS ORDERED: Spironolactone 25 MG TAB PO SCH ×2 (12:56→13:00)
[2020-08-19] MEDS: Nicotine 14 MG PATCH TD SCH (16:41)
[2020-08-19] MEDS: Atorvastatin Calcium 40 MG TAB PO SCH (20:04)
[2020-08-19] MEDS: Prazosin HCl 1 MG CAP PO SCH (20:06)
[2020-08-20 04:39] LABS: #Eosinphils 0.2 thou/uL (0.0-0.7); #Lymphocytes 2.1 thou/uL (1.20-3.40); #Monocytes 0.6 thou/uL (0.11-0.59); #Neutrophils 4.3 thou/uL (1.40-6.50); %Basophils 0.6 % (0.0-1.0); %Eosinophils 2.4 % (0.0-10.0); %Lymphocytes 29.5 % (21.0-51.0); %Monocytes 7.6 % (0.0-10.0); Hemoglobin 8.2 g/dL (14.0-18.0); Mean Corpuscular HGB CONC 32.4 g/dL (32.0-36.0); Mean Corpuscular Hemoglobin 30.2 pg (27.0-31.0); Mean Corpuscular Volume 93.4 fL (78.0-98.0); Mean Platelet Volume 9.9 fL (7.4-10.4); Platelet Count 90 thou/uL (130-400); RBC Distribution Width 17.1 % (11.5-14.5); White Blood Cell (WBC) Count 7.2 thou/uL (4.8-10.8)
[2020-08-20 04:50] LABS: Albumin 3.2 g/dL (3.4-4.8); Anion Gap 15 mmol/L (10-20); BUN (Urea Nitrogen) 12 mg/dL (8.4-25.7); BUN/Creatinine Ratio 6.49; Calc. Creatinine Clearance 55 mL/min (70-130); Calcium 8.6 mg/dL (7.8-10.44); Carbon Dioxide 19 mmol/L (23-31); Chloride 105 mmol/L (98-107); Glucose 104 mg/dL (83-110); Phosphorus 4.8 mg/dL (2.3-4.7); Potassium 4.1 mmol/L (3.5-5.1); Sodium 135 mmol/L (136-145)
[2020-08-20] MEDS: Albumin 25% 25 GM/100 ML BOT IVPB SCH (06:17)
[2020-08-20] MEDS ORDERED: Spironolactone 25 MG TAB PO SCH (09:00)
[2020-08-20] MEDS: Thiamine 100 MG TAB PO SCH (09:33)
[2020-08-20] MEDS: Folic Acid 1 MG TAB PO SCH (09:33)
[2020-08-20] MEDS: Sodium Bicarbonate Tab 325 MG TAB PO SCH ×3 (09:34→21:36)
[2020-08-20] MEDS: Propranolol HCl 20 MG TAB PO SCH ×2 (09:34→21:35)
[2020-08-20] MEDS: Pregabalin 50 MG CAP PO SCH ×3 (09:34→21:35)
[2020-08-20] MEDS: MEROPENEM 1 GM/50 ML 1 GM in Premix Bag 1 BAG IVPB SCH ×2 (09:35→19:52)
[2020-08-20] MEDS: Spironolactone 25 MG TAB PO SCH (09:35)
[2020-08-20] MEDS ORDERED: Torsemide 10 MG TAB PO SCH (10:00)
[2020-08-20] MEDS: Iron, Sodium Ferric Gluconate 250 MG in Sodium Chloride 0.9% 100 ML IVPB SCH (11:52)
[2020-08-20] MEDS: HYDROcodone/Acetaminophen 10/325 mg Tablet PO PRN ×2 (11:52→17:44)
[2020-08-20] MEDS: Nicotine 14 MG PATCH TD SCH (17:42)
[2020-08-20] MEDS: Prazosin HCl 1 MG CAP PO SCH (21:34)
[2020-08-20] MEDS: Atorvastatin Calcium 40 MG TAB PO SCH (21:34)
[2020-08-21 04:45] LABS: #Eosinphils 0.1 thou/uL (0.0-0.7); #Lymphocytes 2.3 thou/uL (1.20-3.40); #Monocytes 0.7 thou/uL (0.11-0.59); #Neutrophils 4.4 thou/uL (1.40-6.50); %Basophils 0.6 % (0.0-1.0); %Eosinophils 1.1 % (0.0-10.0); %Lymphocytes 30.8 % (21.0-51.0); %Monocytes 8.9 % (0.0-10.0); %Neutrophils 58.5 % (42.0-75.0); Hemoglobin 7.3 g/dL (14.0-18.0); Mean Corpuscular HGB CONC 31.4 g/dL (32.0-36.0); Mean Corpuscular Hemoglobin 29.2 pg (27.0-31.0); Mean Corpuscular Volume 92.9 fL (78.0-98.0); Mean Platelet Volume 10.2 fL (7.4-10.4); Platelet Count 78 thou/uL (130-400); RBC Distribution Width 17.2 % (11.5-14.5); Red Blood Cell (RBC) Count 2.51 mill/uL (4.70-6.10); White Blood Cell (WBC) Count 7.4 thou/uL (4.8-10.8)
[2020-08-21 04:58] LABS: Albumin 2.9 g/dL (3.4-4.8); Anion Gap 14 mmol/L (10-20); BUN (Urea Nitrogen) 9 mg/dL (8.4-25.7); BUN/Creatinine Ratio 6.38; Calc. Creatinine Clearance 74 mL/min (70-130); Calcium 8.4 mg/dL (7.8-10.44); Carbon Dioxide 23 mmol/L (23-31); Chloride 103 mmol/L (98-107); Glucose 91 mg/dL (83-110); Phosphorus 3.9 mg/dL (2.3-4.7); Potassium 3.6 mmol/L (3.5-5.1); Sodium 136 mmol/L (136-145)
[2020-08-21] MEDS ORDERED: MEROPENEM 1 GM/50 ML 1 GM in Premix Bag 1 BAG IVPB SCH (08:00)
[2020-08-21] MEDS ORDERED: Torsemide 10 MG TAB PO SCH ×2 (09:00)
[2020-08-21] MEDS: Thiamine 100 MG TAB PO SCH (09:55)
[2020-08-21] MEDS: Spironolactone 25 MG TAB PO SCH (09:55)
[2020-08-21] MEDS: Propranolol HCl 20 MG TAB PO SCH ×2 (09:55→21:22)
[2020-08-21] MEDS: Folic Acid 1 MG TAB PO SCH (09:55)
[2020-08-21] MEDS: Pregabalin 50 MG CAP PO SCH ×2 (09:55→14:46)
[2020-08-21] MEDS: Sodium Bicarbonate Tab 325 MG TAB PO SCH ×3 (09:55→21:22)
[2020-08-21] MEDS: HYDROcodone/Acetaminophen 10/325 mg Tablet PO PRN ×3 (10:16→21:23)
[2020-08-21] MEDS: Nicotine 14 MG PATCH TD SCH (14:46)
[2020-08-21] MEDS ORDERED: Gabapentin 100 MG CAP PO SCH (19:00)
[2020-08-21] MEDS: Prazosin HCl 1 MG CAP PO SCH (21:21)
[2020-08-21] MEDS: Atorvastatin Calcium 40 MG TAB PO SCH (21:21)
[2020-08-22 04:18] LABS: #Eosinphils 0.1 thou/uL (0.0-0.7); #Lymphocytes 2.7 thou/uL (1.20-3.40); #Monocytes 0.7 thou/uL (0.11-0.59); #Neutrophils 4.3 thou/uL (1.40-6.50); %Basophils 0.5 % (0.0-1.0); %Eosinophils 1.2 % (0.0-10.0); %Lymphocytes 34.7 % (21.0-51.0); %Monocytes 8.7 % (0.0-10.0); %Neutrophils 54.8 % (42.0-75.0); Hemoglobin 7.6 g/dL (14.0-18.0); Mean Corpuscular HGB CONC 31.8 g/dL (32.0-36.0); Mean Corpuscular Hemoglobin 29.4 pg (27.0-31.0); Mean Corpuscular Volume 92.3 fL (78.0-98.0); Mean Platelet Volume 10.5 fL (7.4-10.4); Platelet Count 84 thou/uL (130-400); Red Blood Cell (RBC) Count 2.59 mill/uL (4.70-6.10); White Blood Cell (WBC) Count 7.8 thou/uL (4.8-10.8)
[2020-08-22 08:13] LABS: Albumin 3.1 g/dL (3.4-4.8); Anion Gap 14 mmol/L (10-20); BUN (Urea Nitrogen) 11 mg/dL (8.4-25.7); BUN/Creatinine Ratio 7.91; Calc. Creatinine Clearance 73 mL/min (70-130); Calcium 8.3 mg/dL (7.8-10.44); Carbon Dioxide 24 mmol/L (23-31); Chloride 102 mmol/L (98-107); Glucose 92 mg/dL (83-110); Phosphorus 3.9 mg/dL (2.3-4.7); Potassium 3.5 mmol/L (3.5-5.1); Sodium 136 mmol/L (136-145)
[2020-08-22] MEDS: Sodium Bicarbonate Tab 325 MG TAB PO SCH ×2 (08:48→20:45)
[2020-08-22] MEDS: Propranolol HCl 20 MG TAB PO SCH ×2 (08:49→20:45)
[2020-08-22] MEDS: HYDROcodone/Acetaminophen 10/325 mg Tablet PO PRN ×4 (08:49→20:46)
[2020-08-22] MEDS: Folic Acid 1 MG TAB PO SCH (08:51)
[2020-08-22] MEDS: Spironolactone 25 MG TAB PO SCH (08:54)
[2020-08-22] MEDS: Thiamine 100 MG TAB PO SCH (08:54)
[2020-08-22] MEDS ORDERED: Gabapentin 100 MG CAP PO SCH ×2 (09:00→12:00)
[2020-08-22] MEDS ORDERED: Gabapentin 300 MG CAP PO SCH (11:45)
[2020-08-22 13:26] VITALS: BMI 31.7
[2020-08-22] MEDS: Gabapentin 100 MG CAP PO SCH ×2 (15:25→20:45)
[2020-08-22] MEDS: Nicotine 14 MG PATCH TD SCH (15:26)
[2020-08-22] MEDS: Ferrous Sulfate 325 MG TAB PO SCH (16:39)
[2020-08-22] MEDS: Atorvastatin Calcium 40 MG TAB PO SCH (20:45)
[2020-08-23 04:49] LABS: #Basophils 0.1 thou/uL (0.0-0.2); #Eosinphils 0.1 thou/uL (0.0-0.7); #Lymphocytes 2.8 thou/uL (1.20-3.40); #Monocytes 0.8 thou/uL (0.11-0.59); #Neutrophils 4.2 thou/uL (1.40-6.50); %Eosinophils 0.6 % (0.0-10.0); %Lymphocytes 35.5 % (21.0-51.0); %Monocytes 9.8 % (0.0-10.0); Hemoglobin 7.3 g/dL (14.0-18.0); Mean Corpuscular HGB CONC 33.1 g/dL (32.0-36.0); Mean Corpuscular Hemoglobin 30.3 pg (27.0-31.0); Mean Corpuscular Volume 91.7 fL (78.0-98.0); Mean Platelet Volume 10.4 fL (7.4-10.4); Platelet Count 83 thou/uL (130-400); RBC Distribution Width 17.1 % (11.5-14.5); White Blood Cell (WBC) Count 7.9 thou/uL (4.8-10.8)
[2020-08-23 05:04] LABS: Anion Gap 13 mmol/L (10-20); BUN (Urea Nitrogen) 14 mg/dL (8.4-25.7); Calc. Creatinine Clearance 65 mL/min (70-130); Calcium 7.8 mg/dL (7.8-10.44); Carbon Dioxide 24 mmol/L (23-31); Chloride 104 mmol/L (98-107); Glucose 95 mg/dL (83-110); Potassium 3.8 mmol/L (3.5-5.1); Sodium 137 mmol/L (136-145)
[2020-08-23] MEDS: Ferrous Sulfate 325 MG TAB PO SCH (08:01)
[2020-08-23] MEDS: HYDROcodone/Acetaminophen 10/325 mg Tablet PO PRN ×2 (08:01→12:15)
[2020-08-23] MEDS: Thiamine 100 MG TAB PO SCH (08:01)
[2020-08-23] MEDS: Gabapentin 100 MG CAP PO SCH (08:02)
[2020-08-23] MEDS: Propranolol HCl 20 MG TAB PO SCH (08:02)
[2020-08-23] MEDS: Sodium Bicarbonate Tab 325 MG TAB PO SCH (08:02)
[2020-08-23] MEDS: Folic Acid 1 MG TAB PO SCH (08:02)
[2020-08-23] MEDS ORDERED: Torsemide 10 MG TAB PO SCH (09:00)
[2020-08-23] MEDS: Spironolactone 25 MG TAB PO SCH (09:36)
[2020-08-23 12:58] VITALS: BP 137/61; TEMP 98.5
[2020-08-23] MEDS ORDERED: Gabapentin 100 MG CAP PO SCH (15:00)
[2020-08-23] MEDS ORDERED: Gabapentin 300 MG CAP PO SCH (15:00)
== END 2020-08-23 15:41 | disposition swing bed (61) | DRG 871 ==
LOC: ERS 13:04 → CCU 15:07 → 2NO 08-13 14:30
PROVIDERS: ADMIT Internal Medicine; ATTEND Internal Medicine
PROC: 02HV33Z Insertion of Infusion Device into Superior Vena Cava, Percutaneous Approach (ICD-10-PCS; principal; 2020-08-10)
PROC: 30233N1 Transfusion of Nonautologous Red Blood Cells into Peripheral Vein, Percutaneous Approach (ICD-10-PCS; 2020-08-10)
PROC: 3E033XZ Introduction of Vasopressor into Peripheral Vein, Percutaneous Approach (ICD-10-PCS; 2020-08-10)
DX: A41.9 Sepsis, unspecified organism (principal); R65.21 Severe sepsis with septic shock; J96.01 Acute respiratory failure with hypoxia; E87.2 Acidosis; N17.9 Acute kidney failure, unspecified; E87.1 Hypo-osmolality and hyponatremia; K51.00 Ulcerative (chronic) pancolitis without complications; G93.40 Encephalopathy, unspecified; K81.0 Acute cholecystitis; I25.810 Atherosclerosis of coronary artery bypass graft(s) without angina pectoris; K92.2 Gastrointestinal hemorrhage, unspecified; D62 Acute posthemorrhagic anemia; I50.32 Chronic diastolic (congestive) heart failure; Z20.822 Contact with and (suspected) exposure to COVID-19; I48.91 Unspecified atrial fibrillation; F17.210 Nicotine dependence, cigarettes, uncomplicated; I11.0 Hypertensive heart disease with heart failure; K70.30 Alcoholic cirrhosis of liver without ascites; Z51.5 Encounter for palliative care; E87.6 Hypokalemia; E88.09 Other disorders of plasma-protein metabolism, not elsewhere classified; D69.6 Thrombocytopenia, unspecified; E83.42 Hypomagnesemia; D63.8 Anemia in other chronic diseases classified elsewhere; B18.2 Chronic viral hepatitis C; D50.9 Iron deficiency anemia, unspecified; E66.9 Obesity, unspecified; I44.1 Atrioventricular block, second degree; I05.2 Rheumatic mitral stenosis with insufficiency; I35.0 Nonrheumatic aortic (valve) stenosis; Z95.2 Presence of prosthetic heart valve; Z98.890 Other specified postprocedural states; Z95.1 Presence of aortocoronary bypass graft; Z88.8 Allergy status to other drugs, medicaments and biological substances; Z79.899 Other long term (current) drug therapy; Z79.51 Long term (current) use of inhaled steroids; Z79.891 Long term (current) use of opiate analgesic; Z68.31 Body mass index [BMI] 31.0-31.9, adult; Z78.1 Physical restraint status; Z95.5 Presence of coronary angioplasty implant and graft; F10.10 Alcohol abuse, uncomplicated
CPT/HCPCS: 0240U; 36415; 36416; 36430; 71045; 71260; 74150; 74177; 76705; 76770; 77002; 80048; 80053; 80069; 80202; 80306; 80307; 81001; 82140; 82533; 82550; 82570; 82607; 82728; 82746; 83540; 83550; 83605; 83735; 84100; 84156; 84165; 84300; 84484; 84540; 84550; 85025; 85610; 85730; 86140; 86850; 86900; 86901; 87389; 93005; 93010; 93306; 93923; 93975; 96365; 96366; 96368; 96375; C1729; C9113; J1720; J1885; J2060; J2185; J2916; J3010; J3370; J3411; J3420; J3430; J3475; J3480; J3490; J7042; J7050; J7070; P9016; P9047; Q9967

== ENCOUNTER 2020-08-25 15:29 | Inpatient (IN) | payer MEDICARE, MEDICAID ==
[2020-08-25] MEDS ORDERED: Acetaminophen 500 MG TAB ONE (16:52)
[2020-08-25 17:13] LABS: Bacteria/HPF None Seen HPF (None Seen); Bilirubin Negative (Negative); Blood, Urine 2+ (Negative); Clarity Clear (Clear); Glucose, Urine (Dipstick) Normal (Negative); Ketone, Urine Negative (Negative); Leukocyte Negative Leu/uL (Negative); Nitrite Negative (Negative); Protein, Urine (Dipstick) 20 mg/dL (Neg-Trace); RBC/HPF Greater than 50 HPF (0-3); Specific Gravity, Urine 1.011 (1.002-1.036); Squamous Epithelial 0-3 HPF (0-3); Urobilinogen Normal mg/dL (Less than 2)
[2020-08-25 17:19] LABS: Medtox Reader # READER 1
[2020-08-25 17:20] LABS: Amphetamine Not Detected (NotDetected); Barbiturates Screen Not Detected (NotDetected); Benzodiazepine Screen Not Detected (NotDetected); Cocaine Metabolite Screen Not Detected (NotDetected); Medtox Control Line Valid? VALID (VALID); Methadone Not Detected (NotDetected); Methamphetamine Not Detected (NotDetected); Opiate Screen Detected (NotDetected); Oxycodone Screen Not Detected (NotDetected); Phencyclidine (PCP) Not Detected (NotDetected); THC/Cannabinoid Screen Not Detected (NotDetected); Tricyclic Screen Detected (NotDetected)
[2020-08-25 17:30] LABS: #Basophils 0.1 thou/uL (0.0-0.2); #Eosinphils 0.1 thou/uL (0.0-0.7); #Neutrophils 4.6 thou/uL (1.40-6.50); %Eosinophils 0.6 % (0.0-10.0); %Lymphocytes 34.1 % (21.0-51.0); %Neutrophils 52.4 % (42.0-75.0); Hemoglobin 8.5 g/dL (14.0-18.0); Mean Corpuscular HGB CONC 32.7 g/dL (32.0-36.0); Mean Corpuscular Hemoglobin 30.3 pg (27.0-31.0); Mean Corpuscular Volume 92.9 fL (78.0-98.0); Mean Platelet Volume 11.1 fL (7.4-10.4); Platelet Count 101 thou/uL (130-400); RBC Distribution Width 18.1 % (11.5-14.5); Red Blood Cell (RBC) Count 2.79 mill/uL (4.70-6.10); White Blood Cell (WBC) Count 8.7 thou/uL (4.8-10.8)
[2020-08-25 17:42] LABS: Acetaminophen Less than 6.0 mcg/mL (10.0-30.0); Alcohol Less than 10 mg/dL (Less than 10); Salicylate Less than 8.0 mg/dL (15.0-30.0)
[2020-08-25 17:45] LABS: ALT (SGPT) 9 U/L (8-55); AST (SGOT) 40 U/L (5-34); Albumin 3.1 g/dL (3.4-4.8); Alcohol Less than 10 mg/dL (Less than 10); Alkaline Phosphatase 70 U/L (40-110); Anion Gap 18 mmol/L (10-20); BUN (Urea Nitrogen) 18 mg/dL (8.4-25.7); Bilirubin, Total 2.4 mg/dL (0.2-1.2); Calc. Creatinine Clearance 0 mL/min (70-130); Calcium 8.2 mg/dL (7.8-10.44); Carbon Dioxide 19 mmol/L (23-31); Chloride 103 mmol/L (98-107); Globulin 5.4 g/dL (2.4-3.5); Glucose 96 mg/dL (83-110); Potassium 4.9 mmol/L (3.5-5.1); Protein, Total 8.5 g/dL (5.8-8.1); Sodium 135 mmol/L (136-145)
[2020-08-25] MEDS ORDERED: Acetaminophen 650 MG Suppository PR PRN (21:26)
[2020-08-25] MEDS: HYDROcodone/Acetaminophen 10/325 mg Tablet PO PRN (23:42)
[2020-08-25 23:43] LABS: Lactic Acid 2.4 mmol/L (0.5-2.2)
[2020-08-25 23:47] LABS: Bilirubin, Direct 1.5 mg/dL (0.1-0.3)
[2020-08-26] MEDS: Sodium Chloride 0.9% 1,000 ML IV SCH ×2 (00:50→10:35)
[2020-08-26] MEDS ORDERED: Atorvastatin Calcium 40 MG TAB PO SCH (01:00)
[2020-08-26] MEDS ORDERED: Gabapentin 100 MG CAP PO SCH (01:00)
[2020-08-26] MEDS ORDERED: Sodium Bicarbonate Tab 325 MG TAB PO SCH (01:00)
[2020-08-26] MEDS ORDERED: Propranolol HCl 20 MG TAB PO SCH (01:00)
[2020-08-26] MEDS ORDERED: Magnesium Sulfate 4 GM in Sodium Chloride 0.9% 250 ML 250 ML IVPB SCH (01:15)
[2020-08-26] MEDS ORDERED: Morphine 2 MG/ML VIAL SLOW IVP SCH (01:45)
[2020-08-26 04:18] LABS: #Basophils 0.1 thou/uL (0.0-0.2); #Eosinphils 0.1 thou/uL (0.0-0.7); #Lymphocytes 2.7 thou/uL (1.20-3.40); #Monocytes 0.9 thou/uL (0.11-0.59); #Neutrophils 3.9 thou/uL (1.40-6.50); %Basophils 1.2 % (0.0-1.0); %Eosinophils 1.4 % (0.0-10.0); %Lymphocytes 35.3 % (21.0-51.0); %Monocytes 11.9 % (0.0-10.0); %Neutrophils 50.1 % (42.0-75.0); Hemoglobin 8.4 g/dL (14.0-18.0); Mean Corpuscular HGB CONC 32.2 g/dL (32.0-36.0); Mean Platelet Volume 10.7 fL (7.4-10.4); Platelet Count 103 thou/uL (130-400); RBC Distribution Width 18.3 % (11.5-14.5); Red Blood Cell (RBC) Count 2.81 mill/uL (4.70-6.10); White Blood Cell (WBC) Count 7.7 thou/uL (4.8-10.8)
[2020-08-26 04:22] LABS: Hemoglobin A1c 4.8 % (4.0-6.0)
[2020-08-26 04:36] LABS: Iron 41 ug/dL (65-175); Iron Binding Capacity, Total 280 mcg/dL (261-462)
[2020-08-26 04:37] LABS: ALT (SGPT) 8 U/L (8-55); AST (SGOT) 32 U/L (5-34); Albumin 3.1 g/dL (3.4-4.8); Alkaline Phosphatase 77 U/L (40-110); Anion Gap 16 mmol/L (10-20); BUN (Urea Nitrogen) 20 mg/dL (8.4-25.7); Bilirubin, Direct 1.6 mg/dL (0.1-0.3); Bilirubin, Total 2.2 mg/dL (0.2-1.2); Calc. Creatinine Clearance 57 mL/min (70-130); Calcium 7.7 mg/dL (7.8-10.44); Carbon Dioxide 22 mmol/L (23-31); Chloride 101 mmol/L (98-107); Globulin 5.2 g/dL (2.4-3.5); Glucose 128 mg/dL (83-110); Iron 45 ug/dL (65-175); Iron Binding Capacity, Total 285 mcg/dL (261-462); Magnesium 1.2 mg/dL (1.6-2.6); Potassium 3.7 mmol/L (3.5-5.1); Protein, Total 8.3 g/dL (5.8-8.1); Sodium 135 mmol/L (136-145)
[2020-08-26 05:15] LABS: Ferritin 392.96 ng/mL (22-322)
[2020-08-26 05:29] LABS: Vitamin B12 Greater than 2000 pg/mL (211-911)
[2020-08-26] MEDS ORDERED: Magnesium Oxide 400 MG TAB PO SCH (05:45)
[2020-08-26] MEDS: Torsemide 10 MG TAB PO SCH (07:45)
[2020-08-26] MEDS: Magnesium Oxide 400 MG TAB PO SCH ×2 (07:45→20:04)
[2020-08-26] MEDS: HYDROcodone/Acetaminophen 10/325 mg Tablet PO PRN ×3 (07:45→18:19)
[2020-08-26] MEDS: Thiamine 100 MG TAB PO SCH (07:46)
[2020-08-26] MEDS: Spironolactone 25 MG TAB PO SCH (07:46)
[2020-08-26] MEDS: Sodium Bicarbonate Tab 325 MG TAB PO SCH ×2 (07:46→20:03)
[2020-08-26] MEDS: Propranolol HCl 20 MG TAB PO SCH ×2 (07:46→20:04)
[2020-08-26] MEDS: Ferrous Sulfate 325 MG TAB PO SCH ×2 (07:46→16:22)
[2020-08-26] MEDS: Gabapentin 100 MG CAP PO SCH ×3 (07:47→20:03)
[2020-08-26] MEDS: Folic Acid 1 MG TAB PO SCH (07:47)
[2020-08-26] MEDS: Nicotine 14 MG PATCH TD SCH (07:48)
[2020-08-26] MEDS ORDERED: Magnesium 2 GM/50 ML 2 GM in Premix Bag 1 BAG IVPB SCH ×2 (08:15→10:45)
[2020-08-26] MEDS ORDERED: Famotidine 20 MG TAB PO SCH (09:00)
[2020-08-26 09:48] LABS: Lactic Acid 2.6 mmol/L (0.5-2.2)
[2020-08-26] MEDS: Acetaminophen 325 MG TAB PO PRN (16:22)
[2020-08-26] MEDS: Atorvastatin Calcium 40 MG TAB PO SCH (20:04)
[2020-08-27] MEDS ORDERED: Haloperidol Lactate 5 MG/ML VIAL IM SCH (00:15)
[2020-08-27] MEDS ORDERED: Lorazepam 2 MG/ML VIAL SLOW IVP SCH (00:15)
[2020-08-27] MEDS: Sodium Chloride 0.9% 1,000 ML IV SCH (09:50)
[2020-08-27] MEDS: Sodium Bicarbonate Tab 325 MG TAB PO SCH ×2 (12:13→20:15)
[2020-08-27] MEDS: Magnesium Oxide 400 MG TAB PO SCH ×2 (12:13→20:15)
[2020-08-27] MEDS: Ferrous Sulfate 325 MG TAB PO SCH ×2 (12:14→19:00)
[2020-08-27] MEDS: Gabapentin 100 MG CAP PO SCH ×3 (12:14→20:14)
[2020-08-27] MEDS: Thiamine 100 MG TAB PO SCH (12:14)
[2020-08-27] MEDS: Folic Acid 1 MG TAB PO SCH (12:14)
[2020-08-27] MEDS: Spironolactone 25 MG TAB PO SCH (12:17)
[2020-08-27] MEDS: Propranolol HCl 20 MG TAB PO SCH ×3 (12:17→20:25)
[2020-08-27] MEDS: Nicotine 14 MG PATCH TD SCH ×2 (12:18→12:40)
[2020-08-27] MEDS: Torsemide 10 MG TAB PO SCH (12:18)
[2020-08-27 12:51] LABS: ALT (SGPT) 9 U/L (8-55); AST (SGOT) 34 U/L (5-34); Albumin 3.1 g/dL (3.4-4.8); Alkaline Phosphatase 72 U/L (40-110); Anion Gap 17 mmol/L (10-20); BUN (Urea Nitrogen) 21 mg/dL (8.4-25.7); Bilirubin, Total 2.5 mg/dL (0.2-1.2); Calc. Creatinine Clearance 57 mL/min (70-130); Calcium 7.9 mg/dL (7.8-10.44); Carbon Dioxide 21 mmol/L (23-31); Chloride 101 mmol/L (98-107); Globulin 5.3 g/dL (2.4-3.5); Glucose 93 mg/dL (83-110); Magnesium 1.5 mg/dL (1.6-2.6); Potassium 4.3 mmol/L (3.5-5.1); Protein, Total 8.4 g/dL (5.8-8.1); Sodium 135 mmol/L (136-145)
[2020-08-27 13:17] LABS: #Eosinphils 0.1 thou/uL (0.0-0.7); #Lymphocytes 2.4 thou/uL (1.20-3.40); #Monocytes 0.8 thou/uL (0.11-0.59); #Neutrophils 3.8 thou/uL (1.40-6.50); %Basophils 0.6 % (0.0-1.0); %Lymphocytes 33.7 % (21.0-51.0); %Monocytes 11.3 % (0.0-10.0); %Neutrophils 53.4 % (42.0-75.0); Anisocytosis SLIGHT = 6-15 cells (100X) (0-5/hpf); Hemoglobin 8.2 g/dL (14.0-18.0); Hypochromia SLIGHT = 6-15 cells (100X) (0-5/hpf); MDiff Complete? YES; Mean Corpuscular Hemoglobin 29.8 pg (27.0-31.0); Mean Corpuscular Volume 93.1 fL (78.0-98.0); Mean Platelet Volume 10.2 fL (7.4-10.4); Platelet Count 101 thou/uL (130-400); Platelet Morphology Comment Appears Decreased; Polychromasia SLIGHT = 2-3 cells (100X) (0-2/hpf); RBC Distribution Width 18.3 % (11.5-14.5); Red Blood Cell (RBC) Count 2.75 mill/uL (4.70-6.10); Target Cells SLIGHT = 2-5 cells (100X) (0-1/hpf); White Blood Cell (WBC) Count 7.1 thou/uL (4.8-10.8)
[2020-08-27] MEDS ORDERED: Magnesium 2 GM/50 ML 2 GM in Premix Bag 1 BAG IVPB SCH (18:15)
[2020-08-27] MEDS: Atorvastatin Calcium 40 MG TAB PO SCH (20:14)
[2020-08-28 06:18] LABS: #Basophils 0.1 thou/uL (0.0-0.2); #Eosinphils 0.2 thou/uL (0.0-0.7); #Lymphocytes 2.8 thou/uL (1.20-3.40); #Monocytes 0.8 thou/uL (0.11-0.59); #Neutrophils 2.8 thou/uL (1.40-6.50); %Eosinophils 2.5 % (0.0-10.0); %Lymphocytes 42.4 % (21.0-51.0); %Monocytes 11.5 % (0.0-10.0); %Neutrophils 42.5 % (42.0-75.0); Hemoglobin 7.7 g/dL (14.0-18.0); Mean Corpuscular Hemoglobin 30.3 pg (27.0-31.0); Mean Corpuscular Volume 91.9 fL (78.0-98.0); Mean Platelet Volume 11.1 fL (7.4-10.4); Platelet Count 85 thou/uL (130-400); RBC Distribution Width 18.1 % (11.5-14.5); Red Blood Cell (RBC) Count 2.54 mill/uL (4.70-6.10); White Blood Cell (WBC) Count 6.5 thou/uL (4.8-10.8)
[2020-08-28 06:26] LABS: ALT (SGPT) 7 U/L (8-55); AST (SGOT) 32 U/L (5-34); Albumin 2.8 g/dL (3.4-4.8); Alkaline Phosphatase 60 U/L (40-110); Anion Gap 17 mmol/L (10-20); BUN (Urea Nitrogen) 22 mg/dL (8.4-25.7); Bilirubin, Total 2.4 mg/dL (0.2-1.2); Calc. Creatinine Clearance 63 mL/min (70-130); Calcium 7.7 mg/dL (7.8-10.44); Carbon Dioxide 20 mmol/L (23-31); Chloride 104 mmol/L (98-107); Globulin 4.7 g/dL (2.4-3.5); Glucose 68 mg/dL (83-110); Magnesium 1.7 mg/dL (1.6-2.6); Protein, Total 7.5 g/dL (5.8-8.1); Sodium 137 mmol/L (136-145)
[2020-08-28] MEDS: Gabapentin 100 MG CAP PO SCH ×3 (08:06→20:26)
[2020-08-28] MEDS: Thiamine 100 MG TAB PO SCH (08:06)
[2020-08-28] MEDS: Magnesium Oxide 400 MG TAB PO SCH ×2 (08:06→20:25)
[2020-08-28] MEDS: Folic Acid 1 MG TAB PO SCH (08:06)
[2020-08-28] MEDS: Propranolol HCl 20 MG TAB PO SCH ×2 (08:06→20:27)
[2020-08-28] MEDS: Sodium Bicarbonate Tab 325 MG TAB PO SCH ×2 (08:06→20:26)
[2020-08-28] MEDS: Spironolactone 25 MG TAB PO SCH (08:06)
[2020-08-28] MEDS: Nicotine 14 MG PATCH TD SCH (08:07)
[2020-08-28] MEDS: Ferrous Sulfate 325 MG TAB PO SCH ×2 (08:07→15:34)
[2020-08-28] MEDS: Acetaminophen 325 MG TAB PO PRN (20:25)
[2020-08-28] MEDS: Atorvastatin Calcium 40 MG TAB PO SCH (20:25)
[2020-08-29] MEDS: Folic Acid 1 MG TAB PO SCH (09:08)
[2020-08-29] MEDS: Ferrous Sulfate 325 MG TAB PO SCH ×2 (09:08→16:35)
[2020-08-29] MEDS: Nicotine 14 MG PATCH TD SCH (09:09)
[2020-08-29] MEDS: Gabapentin 100 MG CAP PO SCH ×3 (09:09→20:39)
[2020-08-29] MEDS: Magnesium Oxide 400 MG TAB PO SCH ×2 (09:09→20:38)
[2020-08-29] MEDS: Propranolol HCl 20 MG TAB PO SCH ×2 (09:10→20:38)
[2020-08-29] MEDS: Sodium Bicarbonate Tab 325 MG TAB PO SCH ×2 (09:10→20:38)
[2020-08-29] MEDS: Thiamine 100 MG TAB PO SCH (09:10)
[2020-08-29] MEDS: Acetaminophen 325 MG TAB PO PRN (20:38)
[2020-08-29] MEDS: Atorvastatin Calcium 40 MG TAB PO SCH (20:40)
[2020-08-30] MEDS: Nicotine 14 MG PATCH TD SCH (09:11)
[2020-08-30] MEDS: Folic Acid 1 MG TAB PO SCH (09:12)
[2020-08-30] MEDS: Thiamine 100 MG TAB PO SCH (09:13)
[2020-08-30] MEDS: Magnesium Oxide 400 MG TAB PO SCH ×2 (09:13→19:41)
[2020-08-30] MEDS: Gabapentin 100 MG CAP PO SCH ×3 (09:13→19:40)
[2020-08-30] MEDS: Torsemide 10 MG TAB PO SCH (09:13)
[2020-08-30] MEDS: Sodium Bicarbonate Tab 325 MG TAB PO SCH ×2 (09:13→19:40)
[2020-08-30] MEDS: Ferrous Sulfate 325 MG TAB PO SCH ×2 (09:14→16:22)
[2020-08-30] MEDS: Propranolol HCl 20 MG TAB PO SCH ×2 (09:14→19:41)
[2020-08-30] MEDS: Spironolactone 25 MG TAB PO SCH (09:14)
[2020-08-30 14:30] LABS: #Eosinphils 0.1 thou/uL (0.0-0.7); #Lymphocytes 1.7 thou/uL (1.20-3.40); #Monocytes 0.6 thou/uL (0.11-0.59); #Neutrophils 2.7 thou/uL (1.40-6.50); %Basophils 0.9 % (0.0-1.0); %Eosinophils 1.9 % (0.0-10.0); %Lymphocytes 33.4 % (21.0-51.0); %Monocytes 10.8 % (0.0-10.0); Hemoglobin 8.6 g/dL (14.0-18.0); Mean Corpuscular HGB CONC 31.5 g/dL (32.0-36.0); Mean Corpuscular Hemoglobin 29.8 pg (27.0-31.0); Mean Corpuscular Volume 94.5 fL (78.0-98.0); Mean Platelet Volume 9.7 fL (7.4-10.4); Platelet Count 113 thou/uL (130-400); RBC Distribution Width 18.4 % (11.5-14.5); Red Blood Cell (RBC) Count 2.89 mill/uL (4.70-6.10); White Blood Cell (WBC) Count 5.1 thou/uL (4.8-10.8)
[2020-08-30 14:54] LABS: ALT (SGPT) 7 U/L (8-55); AST (SGOT) 31 U/L (5-34); Albumin 2.9 g/dL (3.4-4.8); Alkaline Phosphatase 63 U/L (40-110); Anion Gap 15 mmol/L (10-20); BUN (Urea Nitrogen) 23 mg/dL (8.4-25.7); Bilirubin, Total 2.9 mg/dL (0.2-1.2); Calc. Creatinine Clearance 55 mL/min (70-130); Calcium 8.6 mg/dL (7.8-10.44); Carbon Dioxide 22 mmol/L (23-31); Chloride 104 mmol/L (98-107); Globulin 5.4 g/dL (2.4-3.5); Glucose 198 mg/dL (83-110); Magnesium 1.8 mg/dL (1.6-2.6); Potassium 3.6 mmol/L (3.5-5.1); Protein, Total 8.3 g/dL (5.8-8.1); Sodium 137 mmol/L (136-145)
[2020-08-30] MEDS: Atorvastatin Calcium 40 MG TAB PO SCH (19:40)
[2020-08-31] MEDS: Torsemide 10 MG TAB PO SCH (08:59)
[2020-08-31] MEDS: Sodium Bicarbonate Tab 325 MG TAB PO SCH ×2 (08:59→20:21)
[2020-08-31] MEDS: Folic Acid 1 MG TAB PO SCH (09:00)
[2020-08-31] MEDS: Gabapentin 100 MG CAP PO SCH ×3 (09:00→20:20)
[2020-08-31] MEDS: Thiamine 100 MG TAB PO SCH (09:00)
[2020-08-31] MEDS: Magnesium Oxide 400 MG TAB PO SCH ×2 (09:00→20:20)
[2020-08-31] MEDS: Ferrous Sulfate 325 MG TAB PO SCH ×2 (09:00→16:22)
[2020-08-31] MEDS: Propranolol HCl 20 MG TAB PO SCH ×2 (09:01→20:21)
[2020-08-31] MEDS: Spironolactone 25 MG TAB PO SCH (09:01)
[2020-08-31] MEDS: Nicotine 14 MG PATCH TD SCH (09:02)
[2020-08-31] MEDS: Atorvastatin Calcium 40 MG TAB PO SCH (20:20)
[2020-09-01] MEDS: Torsemide 10 MG TAB PO SCH (10:40)
[2020-09-01] MEDS: Sodium Bicarbonate Tab 325 MG TAB PO SCH ×2 (10:40→19:39)
[2020-09-01] MEDS: Magnesium Oxide 400 MG TAB PO SCH ×2 (10:41→19:39)
[2020-09-01] MEDS: Folic Acid 1 MG TAB PO SCH (10:41)
[2020-09-01] MEDS: Spironolactone 25 MG TAB PO SCH (10:41)
[2020-09-01] MEDS: Gabapentin 100 MG CAP PO SCH ×3 (10:41→19:38)
[2020-09-01] MEDS: Ferrous Sulfate 325 MG TAB PO SCH ×2 (10:42→18:15)
[2020-09-01] MEDS: Thiamine 100 MG TAB PO SCH (10:42)
[2020-09-01] MEDS: Propranolol HCl 20 MG TAB PO SCH ×2 (10:42→19:55)
[2020-09-01] MEDS: Nicotine 14 MG PATCH TD SCH (10:43)
[2020-09-01 11:49] LABS: Anion Gap 17 mmol/L (10-20); BUN (Urea Nitrogen) 18 mg/dL (8.4-25.7); Calc. Creatinine Clearance 56 mL/min (70-130); Calcium 8.6 mg/dL (7.8-10.44); Carbon Dioxide 20 mmol/L (23-31); Chloride 106 mmol/L (98-107); Glucose 121 mg/dL (83-110); Potassium 4.2 mmol/L (3.5-5.1); Sodium 139 mmol/L (136-145)
[2020-09-01 11:53] LABS: Hemoglobin 9.1 g/dL (14.0-18.0); Mean Corpuscular HGB CONC 32.1 g/dL (32.0-36.0); Mean Corpuscular Volume 93.5 fL (78.0-98.0); Red Blood Cell (RBC) Count 3.04 mill/uL (4.70-6.10)
[2020-09-01 12:09] LABS: Anisocytosis SLIGHT = 6-15 cells (100X) (0-5/hpf); Lymphocytes 30 % (21-51); MDiff Complete? YES; Mean Platelet Volume 10.9 fL (7.4-10.4); Monocytes 10 % (0-10); Neutrophil 60 % (42-75); Platelet Count 95 thou/uL (130-400); Platelet Morphology Comment Appears Decreased; Polychromasia SLIGHT = 2-3 cells (100X) (0-2/hpf); Target Cells SLIGHT = 2-5 cells (100X) (0-1/hpf); Vacuoles SLIGHT; White Blood Cell (WBC) Count 8.4 thou/uL (4.8-10.8)
[2020-09-01] MEDS: Atorvastatin Calcium 40 MG TAB PO SCH (19:38)
[2020-09-01] MEDS: HYDROcodone/Acetaminophen 10/325 mg Tablet PO PRN (19:51)
[2020-09-02 06:06] LABS: Anion Gap 17 mmol/L (10-20); BUN (Urea Nitrogen) 16 mg/dL (8.4-25.7); Calc. Creatinine Clearance 63 mL/min (70-130); Calcium 8.3 mg/dL (7.8-10.44); Carbon Dioxide 22 mmol/L (23-31); Chloride 105 mmol/L (98-107); Glucose 100 mg/dL (83-110); Potassium 3.6 mmol/L (3.5-5.1); Sodium 140 mmol/L (136-145)
[2020-09-02] MEDS: Spironolactone 25 MG TAB PO SCH (08:12)
[2020-09-02] MEDS: Torsemide 10 MG TAB PO SCH (08:12)
[2020-09-02] MEDS: Magnesium Oxide 400 MG TAB PO SCH ×2 (08:12→19:50)
[2020-09-02] MEDS: Folic Acid 1 MG TAB PO SCH (08:13)
[2020-09-02] MEDS: Gabapentin 100 MG CAP PO SCH ×3 (08:13→19:50)
[2020-09-02] MEDS: Thiamine 100 MG TAB PO SCH (08:13)
[2020-09-02] MEDS: Ferrous Sulfate 325 MG TAB PO SCH ×2 (08:14→18:05)
[2020-09-02] MEDS: Nicotine 21 MG PATCH TD SCH (08:37)
[2020-09-02] MEDS: Sodium Bicarbonate Tab 325 MG TAB PO SCH ×2 (09:24→19:50)
[2020-09-02] MEDS: Propranolol HCl 20 MG TAB PO SCH ×2 (09:24→19:56)
[2020-09-02] MEDS: HYDROcodone/Acetaminophen 10/325 mg Tablet PO PRN ×2 (09:30→14:45)
[2020-09-02 19:41] LABS: #Basophils 0.1 thou/uL (0.0-0.2); #Eosinphils 0.1 thou/uL (0.0-0.7); #Lymphocytes 2.4 thou/uL (1.20-3.40); #Monocytes 0.7 thou/uL (0.11-0.59); #Neutrophils 3.9 thou/uL (1.40-6.50); %Basophils 1.7 % (0.0-1.0); %Eosinophils 1.3 % (0.0-10.0); %Lymphocytes 32.9 % (21.0-51.0); %Monocytes 9.9 % (0.0-10.0); %Neutrophils 54.2 % (42.0-75.0); Hemoglobin 10.2 g/dL (14.0-18.0); Mean Corpuscular HGB CONC 31.4 g/dL (32.0-36.0); Mean Corpuscular Volume 95.5 fL (78.0-98.0); Mean Platelet Volume 10.7 fL (7.4-10.4); Platelet Count 93 thou/uL (130-400); RBC Distribution Width 18.7 % (11.5-14.5); Red Blood Cell (RBC) Count 3.41 mill/uL (4.70-6.10); White Blood Cell (WBC) Count 7.2 thou/uL (4.8-10.8)
[2020-09-02] MEDS: Acetaminophen 325 MG TAB PO PRN (19:51)
[2020-09-02] MEDS: Atorvastatin Calcium 40 MG TAB PO SCH (19:51)
[2020-09-03] MEDS: HYDROcodone/Acetaminophen 10/325 mg Tablet PO PRN ×4 (01:03→21:20)
[2020-09-03 06:13] LABS: Mean Corpuscular HGB CONC 33.5 g/dL (32.0-36.0); Mean Corpuscular Hemoglobin 31.7 pg (27.0-31.0); Mean Corpuscular Volume 94.7 fL (78.0-98.0); Mean Platelet Volume 6.2 fL (7.4-10.4); Platelet Count 69 thou/uL (130-400); RBC Distribution Width 18.4 % (11.5-14.5); Red Blood Cell (RBC) Count 2.85 mill/uL (4.70-6.10); White Blood Cell (WBC) Count 8.3 thou/uL (4.8-10.8)
[2020-09-03 06:22] LABS: Anion Gap 18 mmol/L (10-20); BUN (Urea Nitrogen) 15 mg/dL (8.4-25.7); Calc. Creatinine Clearance 59 mL/min (70-130); Calcium 8.2 mg/dL (7.8-10.44); Carbon Dioxide 21 mmol/L (23-31); Chloride 101 mmol/L (98-107); Glucose 127 mg/dL (83-110); Potassium 3.6 mmol/L (3.5-5.1); Sodium 136 mmol/L (136-145)
[2020-09-03 08:10] LABS: Lymphocytes 47 % (21-51); MDiff Complete? YES; Monocytes 5 % (0-10); Neutrophil 46 % (42-75); Platelet Morphology Comment Appears Decreased; Polychromasia SLIGHT = 2-3 cells (100X) (0-2/hpf); Reactive Lymphocytes 2 % (0-10)
[2020-09-03] MEDS: Folic Acid 1 MG TAB PO SCH (08:45)
[2020-09-03] MEDS: Torsemide 10 MG TAB PO SCH (08:45)
[2020-09-03] MEDS: Sodium Bicarbonate Tab 325 MG TAB PO SCH ×3 (08:45→22:00)
[2020-09-03] MEDS: Gabapentin 100 MG CAP PO SCH ×4 (08:45→22:00)
[2020-09-03] MEDS: Ferrous Sulfate 325 MG TAB PO SCH ×2 (08:45→17:30)
[2020-09-03] MEDS: Spironolactone 25 MG TAB PO SCH (08:45)
[2020-09-03] MEDS: Propranolol HCl 20 MG TAB PO SCH ×2 (08:45→22:00)
[2020-09-03] MEDS: Magnesium Oxide 400 MG TAB PO SCH ×3 (08:45→22:00)
[2020-09-03] MEDS: Nicotine 21 MG PATCH TD SCH (08:46)
[2020-09-03] MEDS: Thiamine 100 MG TAB PO SCH (08:46)
[2020-09-03] MEDS: Vancomycin 1.5 GRAM/300 ML BAG 1.5 GM in Premix Bag 1 BAG IVPB SCH (15:44)
[2020-09-03] MEDS: Morphine 4 MG/ML VIAL SLOW IVP PRN (15:45)
[2020-09-03] MEDS ORDERED: Vancomycin 1 GM in Premix Bag 1 BAG IVPB SCH (21:00)
[2020-09-03] MEDS: Atorvastatin Calcium 40 MG TAB PO SCH ×2 (21:14→22:00)
[2020-09-03] MEDS: Enoxaparin Sodium 40 MG/0.4 ML SYRINGE SC SCH (22:00)
[2020-09-04] MEDS: HYDROcodone/Acetaminophen 10/325 mg Tablet PO PRN ×4 (04:52→19:22)
[2020-09-04] MEDS: Torsemide 10 MG TAB PO SCH (08:36)
[2020-09-04] MEDS: Folic Acid 1 MG TAB PO SCH (08:37)
[2020-09-04] MEDS: Sodium Bicarbonate Tab 325 MG TAB PO SCH ×2 (08:37→20:19)
[2020-09-04] MEDS: Thiamine 100 MG TAB PO SCH (08:37)
[2020-09-04] MEDS: Magnesium Oxide 400 MG TAB PO SCH ×2 (08:37→20:19)
[2020-09-04] MEDS: Ferrous Sulfate 325 MG TAB PO SCH ×2 (08:37→17:46)
[2020-09-04] MEDS: Spironolactone 25 MG TAB PO SCH (08:37)
[2020-09-04] MEDS: Propranolol HCl 20 MG TAB PO SCH ×2 (08:38→20:17)
[2020-09-04] MEDS: Gabapentin 100 MG CAP PO SCH ×3 (08:38→20:19)
[2020-09-04] MEDS: Nicotine 21 MG PATCH TD SCH (08:39)
[2020-09-04 08:52] LABS: #Basophils 0.1 thou/uL (0.0-0.2); #Eosinphils 0.1 thou/uL (0.0-0.7); #Lymphocytes 2.2 thou/uL (1.20-3.40); #Monocytes 0.8 thou/uL (0.11-0.59); #Neutrophils 4.2 thou/uL (1.40-6.50); %Basophils 1.1 % (0.0-1.0); %Eosinophils 1.1 % (0.0-10.0); %Lymphocytes 29.9 % (21.0-51.0); %Monocytes 11.1 % (0.0-10.0); %Neutrophils 56.9 % (42.0-75.0); Hemoglobin 9.4 g/dL (14.0-18.0); Mean Corpuscular HGB CONC 31.9 g/dL (32.0-36.0); Mean Corpuscular Volume 94.1 fL (78.0-98.0); Mean Platelet Volume 11.3 fL (7.4-10.4); Platelet Count 79 thou/uL (130-400); RBC Distribution Width 18.2 % (11.5-14.5); Red Blood Cell (RBC) Count 3.15 mill/uL (4.70-6.10); White Blood Cell (WBC) Count 7.3 thou/uL (4.8-10.8)
[2020-09-04 09:08] LABS: Anion Gap 17 mmol/L (10-20); BUN (Urea Nitrogen) 15 mg/dL (8.4-25.7); Calc. Creatinine Clearance 58 mL/min (70-130); Calcium 8.7 mg/dL (7.8-10.44); Carbon Dioxide 21 mmol/L (23-31); Chloride 98 mmol/L (98-107); Glucose 89 mg/dL (83-110); Sodium 132 mmol/L (136-145)
[2020-09-04] MEDS: Vancomycin 1.5 GRAM/300 ML BAG 1.5 GM in Premix Bag 1 BAG IVPB SCH (15:06)
[2020-09-04] MEDS: Morphine 4 MG/ML VIAL SLOW IVP PRN (18:11)
[2020-09-04] MEDS: Atorvastatin Calcium 40 MG TAB PO SCH (20:18)
[2020-09-04] MEDS: Enoxaparin Sodium 40 MG/0.4 ML SYRINGE SC SCH (20:32)
[2020-09-05] MEDS: Morphine 4 MG/ML VIAL SLOW IVP PRN (03:57)
[2020-09-05 06:38] LABS: #Eosinphils 0.1 thou/uL (0.0-0.7); #Lymphocytes 2.8 thou/uL (1.20-3.40); #Neutrophils 4.1 thou/uL (1.40-6.50); %Basophils 0.5 % (0.0-1.0); %Eosinophils 1.5 % (0.0-10.0); %Monocytes 12.4 % (0.0-10.0); %Neutrophils 50.6 % (42.0-75.0); Hemoglobin 8.8 g/dL (14.0-18.0); Mean Corpuscular HGB CONC 31.8 g/dL (32.0-36.0); Mean Corpuscular Hemoglobin 30.1 pg (27.0-31.0); Mean Corpuscular Volume 94.9 fL (78.0-98.0); Mean Platelet Volume 10.6 fL (7.4-10.4); Platelet Count 81 thou/uL (130-400); RBC Distribution Width 18.1 % (11.5-14.5)
[2020-09-05 06:52] LABS: Anion Gap 16 mmol/L (10-20); BUN (Urea Nitrogen) 16 mg/dL (8.4-25.7); Calc. Creatinine Clearance 56 mL/min (70-130); Calcium 8.1 mg/dL (7.8-10.44); Carbon Dioxide 21 mmol/L (23-31); Chloride 97 mmol/L (98-107); Glucose 120 mg/dL (83-110); Potassium 3.3 mmol/L (3.5-5.1); Sodium 131 mmol/L (136-145)
[2020-09-05] MEDS: Spironolactone 25 MG TAB PO SCH (08:31)
[2020-09-05] MEDS: Gabapentin 100 MG CAP PO SCH ×3 (08:31→21:42)
[2020-09-05] MEDS: Magnesium Oxide 400 MG TAB PO SCH ×2 (08:31→21:42)
[2020-09-05] MEDS: Sodium Bicarbonate Tab 325 MG TAB PO SCH ×2 (08:31→21:42)
[2020-09-05] MEDS: Thiamine 100 MG TAB PO SCH (08:32)
[2020-09-05] MEDS: Folic Acid 1 MG TAB PO SCH (08:33)
[2020-09-05] MEDS: Ferrous Sulfate 325 MG TAB PO SCH ×2 (08:33→16:59)
[2020-09-05] MEDS: Nicotine 21 MG PATCH TD SCH (08:43)
[2020-09-05] MEDS: Torsemide 10 MG TAB PO SCH (08:48)
[2020-09-05] MEDS: Propranolol HCl 20 MG TAB PO SCH ×2 (08:48→21:43)
[2020-09-05 13:22] LABS: Vancomycin, Trough 7.2 ug/mL
[2020-09-05 13:29] VITALS: BMI 32.5
[2020-09-05] MEDS: VANCOMYCIN 2 GRAM/400 ML BAG 2 GM in Premix Bag 1 BAG IVPB SCH (14:11)
[2020-09-05] MEDS ORDERED: Morphine 2 MG/ML VIAL SLOW IVP PRN (14:21)
[2020-09-05] MEDS: HYDROcodone/Acetaminophen 10/325 mg Tablet PO PRN ×2 (16:59→21:43)
[2020-09-05] MEDS ORDERED: Magnesium 2 GM/50 ML 2 GM in Premix Bag 1 BAG IVPB SCH (17:45)
[2020-09-05] MEDS: Atorvastatin Calcium 40 MG TAB PO SCH (21:43)
[2020-09-05] MEDS: Enoxaparin Sodium 40 MG/0.4 ML SYRINGE SC SCH (21:49)
[2020-09-06] MEDS: HYDROcodone/Acetaminophen 10/325 mg Tablet PO PRN (01:00)
[2020-09-06 07:28] LABS: #Basophils 0.1 thou/uL (0.0-0.2); #Eosinphils 0.1 thou/uL (0.0-0.7); #Lymphocytes 2.8 thou/uL (1.20-3.40); #Monocytes 0.8 thou/uL (0.11-0.59); #Neutrophils 3.6 thou/uL (1.40-6.50); %Basophils 1.4 % (0.0-1.0); %Eosinophils 1.9 % (0.0-10.0); %Lymphocytes 37.7 % (21.0-51.0); Hemoglobin 8.9 g/dL (14.0-18.0); Mean Corpuscular HGB CONC 31.9 g/dL (32.0-36.0); Mean Corpuscular Hemoglobin 30.2 pg (27.0-31.0); Mean Corpuscular Volume 94.8 fL (78.0-98.0); Mean Platelet Volume 11.3 fL (7.4-10.4); Platelet Count 88 thou/uL (130-400); Red Blood Cell (RBC) Count 2.96 mill/uL (4.70-6.10); White Blood Cell (WBC) Count 7.5 thou/uL (4.8-10.8)
[2020-09-06 07:45] LABS: Anion Gap 17 mmol/L (10-20); BUN (Urea Nitrogen) 18 mg/dL (8.4-25.7); Calc. Creatinine Clearance 51 mL/min (70-130); Calcium 8.3 mg/dL (7.8-10.44); Carbon Dioxide 22 mmol/L (23-31); Chloride 95 mmol/L (98-107); Glucose 76 mg/dL (83-110); Potassium 3.7 mmol/L (3.5-5.1); Sodium 130 mmol/L (136-145)
[2020-09-06] MEDS: Ferrous Sulfate 325 MG TAB PO SCH (10:21)
[2020-09-06] MEDS: Gabapentin 100 MG CAP PO SCH ×2 (10:21→15:18)
[2020-09-06] MEDS: Folic Acid 1 MG TAB PO SCH (10:21)
[2020-09-06] MEDS: Spironolactone 25 MG TAB PO SCH (10:21)
[2020-09-06] MEDS: Magnesium Oxide 400 MG TAB PO SCH (10:22)
[2020-09-06] MEDS: Sodium Bicarbonate Tab 325 MG TAB PO SCH (10:23)
[2020-09-06] MEDS: Thiamine 100 MG TAB PO SCH (10:23)
[2020-09-06] MEDS: Nicotine 21 MG PATCH TD SCH (10:23)
[2020-09-06] MEDS: Propranolol HCl 20 MG TAB PO SCH (10:23)
[2020-09-06] MEDS: Torsemide 10 MG TAB PO SCH (10:24)
[2020-09-06] MEDS ORDERED: Albumin 25% 25 GM/100 ML BOT IVPB SCH (12:00)
[2020-09-06] MEDS: VANCOMYCIN 2 GRAM/400 ML BAG 2 GM in Premix Bag 1 BAG IVPB SCH (14:34)
[2020-09-06 17:55] VITALS: BP 118/63; TEMP 98.1
== END 2020-09-06 16:40 | disposition home health service (06) | DRG 442 ==
LOC: ERS 15:29 → T4-B 20:45 → OBSVTOIN 08-26 18:18
PROVIDERS: ADMIT Student in an Organized Health Care Education/Training Program; ATTEND Internal Medicine
DX: K72.90 Hepatic failure, unspecified without coma (principal); L03.116 Cellulitis of left lower limb; L03.115 Cellulitis of right lower limb; N17.9 Acute kidney failure, unspecified; I13.0 Hypertensive heart and chronic kidney disease with heart failure and stage 1 through stage 4 chronic kidney disease, or unspecified chronic kidney disease; I50.42 Chronic combined systolic (congestive) and diastolic (congestive) heart failure; R45.6 Violent behavior; I25.10 Atherosclerotic heart disease of native coronary artery without angina pectoris; G40.909 Epilepsy, unspecified, not intractable, without status epilepticus; K70.30 Alcoholic cirrhosis of liver without ascites; E83.42 Hypomagnesemia; D63.1 Anemia in chronic kidney disease; N18.32 Chronic kidney disease, stage 3b; D50.9 Iron deficiency anemia, unspecified; B18.2 Chronic viral hepatitis C; F17.210 Nicotine dependence, cigarettes, uncomplicated; E86.9 Volume depletion, unspecified; G62.9 Polyneuropathy, unspecified; E86.0 Dehydration; Z95.2 Presence of prosthetic heart valve; Z86.19 Personal history of other infectious and parasitic diseases; Z95.1 Presence of aortocoronary bypass graft; Z79.899 Other long term (current) drug therapy
CPT/HCPCS: 36415; 36416; 70450; 76705; 80048; 80053; 80202; 80306; 80307; 81003; 81015; 82140; 82248; 82607; 82728; 82746; 83036; 83540; 83550; 83605; 83735; 83880; 84443; 85025; 93005; 93970; 96365; 96366; 96375; 96376; G0378; J2060; J2270; J3370; J3475; J7050